=== PATIENT | female | born 1940 | race Caucasian/White ===

== ENCOUNTER 2017-07-23 18:49 | Inpatient (IN) ==
[2017-07-23] MEDS: SALINE FLUSH 10ml SYRINGE IVF PRN (20:15)
[2017-07-23] MEDS ORDERED: ALBUTEROL/IPRATROPIUM 2.5mg-0.5mg/3ml NEB AEROSOL ONE (20:20)
--- NOTE | 2017-07-23 20:54 | Emergency Department Report ---
SOB HPI - General Chief Complaint: Shortness of Breath/Dyspnea <Janice Bansal 07/23/17 20 :54> Stated Complaint: Pneumonia per Xray 82-86 o2 short breath <Janice Bansal 07/23/17 20:54> Time Seen by Provider: 07/23/17 19:52 <Janice Bansal Troy 07/23/17 20:54> Source: patient, family <Janice Bansal 07/23/17 20:54> Mode of arrival: wheelchair <Janice Bansal 07/23/17 20:54> Limitations: no limitations <Janice Bansal 07/23/17 20:54> - History of Present Illness Pt was diagnosed with a CAP yesterday and started on a steroid and Z pack after she had cough, SOA, and overall malaise for the prior 4-5 days. Family states pt SpO2 at home was in the upper 80s so they notified PCP who instructed pt to come to the ER. PT denies chest pain, N/V/D, or joint pain. SHe report fever of 100 at home as well as general weakness. <NicfelyJanice Troy 07/23/17 20:54> MD Complaint: shortness of breath, cough <Janice Bansal Troy 07/23/17 20:54> Onset (ago): day(s) <Janice Bansal Troy 07/23/17 20:54> Context: recent illness <Janice Bansal Troy 07/23/17 20:54> Severity: moderate <NicfelyJanice Santacruz Troy 07/23/17 20:54> Consistency/Duration: constant <Janice Bansal Troy 07/23/17 20:54> - Related Data Home Medications Medication Instructions Recorded Confirmed Potassium Chloride 20 meq PO BID #0 09/27/09 07/23/17 Carvedilol 25 mg PO BID #0 12/21/12 07/23/17 Insulin Aspart Prot/Insuln Asp 6 unit SQ TIDWM #0 12/21/13 07/23/17 [Novolog Mix 70-30 Flexpen Syrn] Melatonin/Pyridoxine [Melatonin 5 10 mg PO HS #0 tab 02/13/15 07/23/17 mg Tablet] Niacin [Niacin ER] 1 tab PO HS #90 02/13/15 07/23/17 Simvastatin 20 mg PO HS #0 tab 04/10/15 07/23/17 Hydralazine HCl 100 mg PO TID #0 tab 08/13/15 07/23/17 Potassium Chloride 10 meq PO HS #0 cap 08/13/15 07/23/17 dilTIAZem HCl [Diltiazem HCl] 180 mg PO BID #0 08/13/15 07/23/17 [place] 5 mg-acetaminophen 325 mg 1 tab PO HS PRN tab 09/17/16 07/23/17 tablet apixaban (Eliquis)5 mg tablet 5 mg PO DAILY tab 09/17/16 07/23/17 APAP/Diphenhydramine 500/25 1 tab PO HS 07/23/17 07/23/17 [Tylenol Pm] Allopurinol [Zyloprim] 100 mg PO DAILY 07/23/17 07/23/17 BuPROPion XL [Wellbutrin Xl] 150 mg PO DAILY 07/23/17 07/23/17 Calcitriol [Rocaltrol] 1 tab PO DAILY 07/23/17 07/23/17 Docusate Sodium [Colace] 200 mg PO HS 07/23/17 07/23/17 Ferrous Sulfate 325 mg PO TID 07/23/17 07/23/17 Furosemide [Lasix 40 mg Tab] 40 mg PO NOON 07/23/17 07/23/17 Furosemide [Lasix 40 mg Tab] 80 mg PO AM 07/23/17 07/23/17 Sertraline [Zoloft] 100 mg PO DAILY 07/23/17 07/23/17 <Janice Bansal 07/23/17 20:54> Allergies Allergy/AdvReac Type Severity Reaction Status Date / Time lisinopril AdvReac Mild COUGH Verified 07/23/17 19:12 succinylcholine chloride Allergy Severe does not Uncoded 07/23/17 19:12 metabolize <Janice Bansal 07/23/17 20:54> Review of Systems All systems: reviewed and negative except as stated <Janice Bansal 20:54> Constitutional: Reports: as per HPI <Janice Bansal 07/23/17 20:54> Cardiovascular: Reports: as per HPI <Janice Bansal 07/23/17 20:54> Respiratory: Reports: as per HPI <Janice Bansal 07/23/17 20:54> Gastrointestinal: Reports: as per HPI <Janice Bansal 07/23/17 20:54> Musculoskeletal: Reports: as per HPI <Janice Bansal 07/23/17 20:54> [facility] Patient Stated Medical History Cardiac Arrhythmia Yes: A-FIB Congestive Heart Failure Yes Hypertension Yes Pneumonia Yes Sleep Apnea Yes Diabetes Mellitus Type 1 Yes Depression Yes Clinic Medical History Anemia (Acute Medical) Arthritis (Acute Medical) COPD (chronic obstructive pulmonary disease) (Acute Medical) Depression (Acute Medical) Diabetes (Acute Medical) HTN (hypertension) (Acute Medical) High cholesterol (Acute Medical) <Janice Bansal 07/23/17 20:54> Family History: Family History Mother Heart disease High blood pressure Father Heart disease <Janice Bansal 07/23/17 20:54> Physical Exam - Limitations Limitations: no limitations <Janice Bansal 07/23/17 20:54> - General General appearance: alert, in no apparent distress <Janice Bansal 07/23 20:54> - Normal Exams: Head:: Normocephalic without trauma <Janice Bansal 07/23/17 20:54> Eyes:: Pupils are PERRLA w/ EOMI <Janice Bansal 07/23/17 20:54> Cardiovascular:: without murmur or gallop, Pulses 2+ all extremities, capillary refill, <2 seconds all extremities (irregular/ hx a fib) <Janice Bansal 07/23/17 20:54> Abdomen:: Bowel sounds positive, soft, non-tender, non-distended <Janice Bansal 07/23/17 20:54> Musculoskeletal:: No tenderness, or deformity noted, good range of motion, all extremities <Janice Bansal 07/23/17 20:54> Integumentary:: No rashes <Janice Bansal 07/23/17 20:54> Neurological:: Patient is alert, and oriented, cranial nerves, motor/sensory/ cerebellar, exams w/o gross deficits, to observation <Evonne Bansalnegrita Simmons 20:54> Psychiatric:: Patient exhibits, appropriate attention, emotion and affect < Janice Bansal 07/23/17 20:54> - Expanded Respiratory Exam Location: Left: wheezes, rhonchi, Right: wheezes, rhonchi, Lower: wheezes, rhonchi <Evonne Bansalan Neeta Simmons 07/23/17 20:54> Course Vital Signs Temperature 98.9 F 07/23/17 18:58 Pulse Rate 112 H 07/23/17 18:58 Respiratory Rate 24 07/23/17 18:58 Blood Pressure 153/85 H 07/23/17 18:58 Pulse Oximetry 90 07/23/17 18:58 Temperature 98.9 F 07/23/17 18:58 Pulse Rate 115 H 07/23/17 22:20 Respiratory Rate 26 H 07/23/17 22:20 Blood Pressure 160/80 H 07/23/17 22:20 Pulse Oximetry 93 07/23/17 22:20 <NimishaJanice Santacruz Troy 07/23/17 20:54> Shortness of Breath/Dyspnea - MDM Narrative Medical decision making narrative: Lab, X ray, and EKG reviewed. Pt started on IVF, Rocephin, and sputum culture obtained. Pt maintaining Spo2 in the low 90s on 2l per NC. Discussed admission with pt who voices understanding. Hospitalist notified of need for admission. Pt to be admitted inpatient <NimishaJanicenegrita Simmons 07/23/17 22:42> - Differential Diagnosis Likely: acute exacerbation of chronic obstructive airways disease, congestive heart failure, community acquired pneumonia, asthma with exacerbation, pulmonary embolism <Janice Bansal 07/23/17 20:54> - Lab Data Attestation: I reviewed the patient's lab results. <Janice Bansal 07/23 22:42> Result diagrams: 07/23/17 20:20 07/23/17 20:20 <Janice Bansal 07/23/17 20:54> Lab Results 07/23/17 07/23/1707/23/18 Range/Units 20:20 20:20 21:43 WBC 20.1 H (4.5-11.0) T/MM3 RBC 3.97 L (4.00-5.20) M/MM3 Hgb 12.1 (12-16) GM/DL Hct 36.8 (36-46) % MCV 92.7 (80-100) UM3 MCH 30.5 (26-34) UUG MCHC 32.9 (31-37) GM/DL RDW Std Deviation 44.7 (36.9-50.2) FL Plt Count 225 (130-400) T/MM3 MPV 10.4 (9.4-12.4) UM3 Immature Gran % (Auto) Not performed Neut % (Auto) Not performed Lymph % (Auto) Not performed [place] % (Auto) Not performed Eos % (Auto) Not performed Baso % (Auto) Not performed Neut # (Auto) Not performed Lymph # (Auto) Not performed [place] # (Auto) Not performed Eos # (Auto) Not performed Baso # (Auto) Not performed Abs Immat Gran (auto) Not performed Neutrophils % (Manual) 93.0 H (33-66) % Lymphocytes % (Manual) 4.0 L (23-45) % Monocytes % (Manual) 3.0 (0-9.0) % Neutrophils # (Manual) 18.7 H (1.8-7.7) T/MM3 Lymphocytes # (Manual) 0.8 L (1-4.8) T/MM3 Monocytes # (Manual) 0.6 (0-0.8) T/MM3 RBC Morph Comment Normal Turbidity < 20 (0-20) Sodium 136 (134-144) MEQ/L Potassium 3.7 (3.6-5) MEQ/L Chloride 97 L (98-107) MEQ/L Carbon Dioxide 26 (22-30) MEQ/L Anion Gap 13 (5-15) MEQ/L BUN 31.0 H (7-17) MG/DL Creatinine 2.0 H (0.7-1.2) mg/dL GFR Calculation 24 BUN/Creatinine Ratio 16 (6-26) RATIO Glucose 235 H (65-110) MG/DL Calculated Osmolality 277 (261-280) MOSM/KG Calcium 9.8 (8.4-10.2) MG/DL Total Bilirubin 0.60 (0.20-1.30) MG/DL Icterus Index < 2 (0-7) AST 28 (14-36) U/L ALT 22 (1-35) U/L Alkaline Phosphatase 123 (38-126) U/L NT-Pro-B Natriuret Pep 3360 H (0-175) pg/mL Total Protein 7.7 (6.3-8.2) g/dL Albumin 4.5 (3.5-5.0) g/dL Globulin 3.2 (2.4-3.6) G/DL Albumin/Globulin Ratio 1.4 (1.1-2.2) RATIO Plasma Lactate 1.3 (0.6-2.2) MMOL/L Specimen Hemolysis < 15 (0-25) <Janice Bansal 07/23/17 20:54> - Radiology Data Attestation: I reviewed the patient's radiology results. <Janice Bansal 07/23/17 22:42> read per August <Janice Bansal 07/23/17 22:42> - EKG Data EKG #1 EKG attestation: Yes: I reviewed and interpreted this EKG. < 21:41> EKG shows normal: axis, intervals, QRS complexes, ST-T waves < 21:41> Rate: tachycardia <07/23/17 21:41> Rhythm: A.Fib <07/23/17 21:41> When compared to previous EKG there are: previous EKG unavailable <07/23/17 21:41> Disposition Clinical Impression: Congestive heart failure Qualifiers: Heart failure chronicity: acute on chronic CAP (community acquired pneumonia) Qualifiers: Laterality: unspecified laterality Qualified Code(s): J18.9 - Pneumonia, unspecified organism <Janice Bansal 07/23/17 22:42> Disposition: 02 To [facility] [place] [facility] <Janice Bansal 07/23/17 22:42> Condition: Improved <Janice Bansal 07/23/17 22:42> Instructions: <Janice Bansal 07/23/17 20:54> Prescriptions: No Action Simvastatin 20 mg PO HS #0 tab dilTIAZem HCl [Diltiazem HCl] 180 mg PO BID #0 Hydralazine HCl 100 mg PO TID #0 tab Docusate Sodium [Colace] 200 mg PO HS Furosemide [Lasix 40 mg Tab] 80 mg PO AM Furosemide [Lasix 40 mg Tab] 40 mg PO NOON APAP/Diphenhydramine 500/25 [Tylenol Pm] 1 tab PO HS Sertraline [Zoloft] 100 mg PO DAILY Calcitriol [Rocaltrol] 1 tab PO DAILY Allopurinol [Zyloprim] 100 mg PO DAILY BuPROPion XL [Wellbutrin Xl] 150 mg PO DAILY Potassium Chloride 20 meq PO BID #0 Carvedilol 25 mg PO BID #0 Insulin Aspart Prot/Insuln Asp [Novolog Mix 70-30 Flexpen Syrn] 6 unit SQ TIDWM #0 Melatonin/Pyridoxine [Melatonin 5 mg Tablet] 10 mg PO HS #0 tab Niacin [Niacin ER] 1 tab PO HS #90 Potassium Chloride 10 meq PO HS #0 cap Ferrous Sulfate 325 mg PO TID <Janice Bansal 07/23/17 20:54> Referrals: Raj Abdalla DO [Primary Care Provider] - <Janice Bansal 20:54> Forms: <Janice Bansal 07/23/17 20:54> Time of Disposition: 22:42 <Janice Bansal 07/23/17 22:42> - Seen By: midlevel <Janice Bansal 07/23/17 22:42>
[2017-07-23] MEDS ORDERED: NS 1,000 ML IV SCH (22:00)
[2017-07-23] MEDS ORDERED: CEFTRIAXONE (ER USE ONLY) 1 GM in NS 100 ML IV ONE (22:32)
[2017-07-23] MEDS ORDERED: ONDANSETRON 4 MG/2 ML INJECTION IVP PRN (23:06)
[2017-07-23 23:32] VITALS: BMI 36.9
--- NOTE | 2017-07-24 00:24 | History & Physical Report ---
History of Present Illness Date: 07/24/17 Chief complaint: SOA HPI: 76 yo F with PMH of HTN and CHF presented to the ED with reports of increased SOA. Patient is poor historian. She wad DX with CAP by her PCP yesterday and given steroids and a Z-pack. She reports that her symptoms have gotten worse.. She reports increased cough productive of yellow/greenish sputum and SOA. Her family took her O2 sta at home and it was in the 80's. Patient then came to the ED. She was found to have PNA and was admitted for further care. Review of Systems All systems PM: 10-point ROS was reviewed, no additional remarkable complaints except Past Medical History Patient Stated Medical History Cardiac Arrhythmia Yes: A-FIB Congestive Heart Failure Yes Hypertension Yes Pneumonia Yes Sleep Apnea Yes Diabetes Mellitus Type 1 Yes Hx Incontinence Yes Osteoarthritis Yes Shingles Yes Depression Yes Clinic Medical History Anemia (Acute Medical) Arthritis (Acute Medical) COPD (chronic obstructive pulmonary disease) (Acute Medical) Depression (Acute Medical) Diabetes (Acute Medical) HTN (hypertension) (Acute Medical) High cholesterol (Acute Medical) Family History: Family History Mother Heart disease High blood pressure Father Heart disease Family History Updates: non contributory - Social History Smoking status: Never smoker Medications Home Medications Medication Instructions Recorded Confirmed Type Potassium Chloride 20 meq PO BID #0 09/27/09 07/23/17 History Carvedilol 25 mg PO BID #0 12/21/12 07/23/17 History Insulin Aspart Prot/Insuln Asp 6 unit SQ TIDWM #0 12/21/13 07/23/17 History [Novolog Mix 70-30 Flexpen Syrn] Melatonin/Pyridoxine [Melatonin 5 10 mg PO HS #0 tab 02/13/15 07/23/17 History mg Tablet] Niacin [Niacin ER] 1 tab PO HS #90 02/13/15 07/23/17 History Simvastatin 20 mg PO HS #0 tab 04/10/15 07/23/17 History Hydralazine HCl 100 mg PO TID #0 tab 08/13/15 07/23/17 History Potassium Chloride 10 meq PO HS #0 cap 08/13/15 07/23/17 History dilTIAZem HCl [Diltiazem HCl] 180 mg PO BID #0 08/13/15 07/23/17 History [place] 5 mg-acetaminophen 325 mg 1 tab PO HS PRN tab 09/17/16 07/23/17 History tablet apixaban (Eliquis)5 mg tablet 5 mg PO DAILY tab 09/17/16 07/23/17 History APAP/Diphenhydramine 500/25 1 tab PO HS 07/23/17 07/23/17 History [Tylenol Pm] Allopurinol [Zyloprim] 100 mg PO DAILY 07/23/17 07/23/17 History BuPROPion XL [Wellbutrin Xl] 150 mg PO DAILY 07/23/17 07/23/17 History Calcitriol [Rocaltrol] 1 tab PO DAILY 07/23/17 07/23/17 History Docusate Sodium [Colace] 200 mg PO HS 07/23/17 07/23/17 History Ferrous Sulfate 325 mg PO TID 07/23/17 07/23/17 History Furosemide [Lasix 40 mg Tab] 40 mg PO NOON 07/23/17 07/23/17 History Furosemide [Lasix 40 mg Tab] 80 mg PO AM 07/23/17 07/23/17 History Sertraline [Zoloft] 100 mg PO DAILY 07/23/17 07/23/17 History Allergies Allergy/AdvReac Type Severity Reaction Status Date / Time lisinopril AdvReac Mild COUGH Verified 07/23/17 19:12 succinylcholine chloride Allergy Severe does not Uncoded 07/23/17 19:12 metabolize Exam Vital Signs: Temperature 98.9 F 07/23/17 23:32 Pulse Rate 137 H 07/23/17 23:32 Respiratory Rate 32 H 07/23/17 23:32 Blood Pressure 147/94 H 07/23/17 23:32 Pulse Oximetry 94 07/23/17 23:32 Height/Weight/BMI: Height 1.5 m Weight 82.9 kg Body Mass Index 36.9 - Constitutional Present: well nourished, well developed - Routine Respiratory Exam Present: rhonchi, wheezes - Routine Cardiovascular Exam Present: RRR. Absent: murmur - Routine Abdominal Exam Present: soft, normoactive bowel sounds, non distended. Absent: tenderness - Routine Extremities Exam Present: normal capillary refill - Routine Skin Exam Present: dry, warm Results - Labs CBC & Chem 7: 07/23/17 20:20 07/23/17 20:20 Microbiology Results: Microbiology 07/23/17 22:47 Sputum, Expectorated Sputum Culture - Preliminary Culture Initiated - Results Pending Assessment and Plan (1) CAP (community acquired pneumonia) Current visit: Yes Status: Acute (2) Congestive heart failure Current visit: Yes Status: Acute Assessment and Plan: Patient admitted for PNA, question underling ChHF exacerbation. She does have elevated BNP. Will give duonebs overnight, IV steroids and possible IV lasix if hypoxia dose not improve. Attempt to wean oxygen during stay. DVT Prophylaxis: SCD's Resuscitation Status: Full Code - Physician Narrative Narrative: Date: 07/24/17 Time: 0015 Hospital Course Summary Disclaimer: The visit summary below is not to be considered part of the above Progress Note.
[2017-07-24] MEDS ORDERED: FUROSEMIDE 20 MG/2 ML INJECTION IVP ONE (00:33)
[2017-07-24] MEDS ORDERED: ALBUTEROL/IPRATROPIUM 2.5mg-0.5mg/3ml NEB AEROSOL PRN ×2 (01:16→01:27)
[2017-07-24] MEDS: BENZONATATE 200 MG CAPSULE PO PRN ×2 (01:47→20:41)
[2017-07-24] MEDS: ALBUTEROL/IPRATROPIUM 2.5mg-0.5mg/3ml NEB AEROSOL SCH ×2 (06:46→20:14)
--- NOTE | 2017-07-24 07:59 | XRay Report ---
INDICATION: SOA, known pneumonia PROCEDURE: CHEST 2-VIEWS UPRIGHT (PA & LAT) Encounter: Initial COMPARISON: July 22, 2017 FINDINGS: Chest appears stable with interstitial prominence. No new or worsening airspace consolidation. No pleural effusion or pneumothorax. Heart size and mediastinal contours are stable. Pulmonary vascularity is unchanged. Impression: Stable appearance of the chest. .
[2017-07-24] MEDS ORDERED: CARVEDILOL 25 MG TABLET PO SCH ×2 (09:00→17:30)
[2017-07-24] MEDS ORDERED: BuPROPion XL 150mg (24HR) TABLET PO SCH (09:15)
[2017-07-24] MEDS ORDERED: GLUCOSE ORAL GEL 40% 37.5gm PO PRN (09:23)
--- NOTE | 2017-07-24 09:53 | History & Physical Report ---
History of Present Illness Date: 07/24/17 HPI: Patient is a 76 year old female who presented to ED due to concerns of hypoxia. Patient had been diagnosed with CAP by her PCP on 07/22. She was started on azithromycin and steroids, of which she took one dose. She continued to have increased cough and not feel well. Her daughter has a pulse ox so they took her oxygen level and reported it would not go higher than 86%. She presented to the ED and was admitted due to hypoxia and pneumonia. Patient denies any other symptoms than cough and not feeling well. She weighs herself approximately once a week and has not noted any weight gain. She uses a CPAP at night but does not use oxygen through the day. She has no history of lung disease. She reports she has not missed any doses of medication, she has not noted any increased swelling. She follows with Dr. Bridges and is scheduled to see him 09/11 for her regular 6 month visit. Review of Systems - Constitutional Constitutional: Present: weakness. Absent: weight gain, weight loss - EENMT Eyes: Absent: blurry vision, change in vision Mouth/Throat: Absent: sore throat, changes in swallowing - Cardiovascular Cardiovascular: Absent: chest pain, palpitations, edema Rhythm: Present: abnormal rhythm - Respiratory Respiratory: Present: cough, dyspnea, chest congestion, excessive phlegm production. Absent: hemoptysis, wheezing - Gastrointestinal Gastrointestinal: Absent: abdominal pain, change in bowel habits, diarrhea - Genitourinary Genitourinary: Absent: difficulty urinating, dysuria - Musculoskeletal Musculoskeletal: Absent: abnormal gait, arthralgias - Neurological Neurological: Absent: confusion, headache(s) - Psychiatric Psychiatric: Present: depression Psychiatric Comments: reports well controlled Past Medical History Atrial Fibrillation Systolic heart failure CKD-Stage IV KIRSTIN-CPAP with sleep HTN Dyslipidemia Osteoarthritis Depression DM2-insulin dependent Obesity Family History Updates: Family History. Mother. Heart disease. High blood pressure. Father. Heart disease - Social History Smoking status: Never smoker Medications Home Medications Medication Instructions Recorded Confirmed Type Potassium Chloride 20 meq PO BID #0 09/27/09 07/23/17 History Carvedilol 25 mg PO BID #0 12/21/12 07/23/17 History Insulin Aspart Prot/Insuln Asp 6 unit SQ TIDWM #0 12/21/13 07/23/17 History [Novolog Mix 70-30 Flexpen Syrn] Melatonin/Pyridoxine [Melatonin 5 10 mg PO HS #0 tab 02/13/15 07/23/17 History mg Tablet] Niacin [Niacin ER] 1 tab PO HS #90 02/13/15 07/23/17 History Simvastatin 20 mg PO HS #0 tab 04/10/15 07/23/17 History Hydralazine HCl 100 mg PO TID #0 tab 08/13/15 07/23/17 History Potassium Chloride 10 meq PO HS #0 cap 08/13/15 07/23/17 History dilTIAZem HCl [Diltiazem HCl] 180 mg PO BID #0 08/13/15 07/23/17 History [place] 5 mg-acetaminophen 325 mg 1 tab PO HS PRN tab 09/17/16 07/23/17 History tablet apixaban (Eliquis)5 mg tablet 2.5 mg PO BID tab 09/17/16 07/24/17 History APAP/Diphenhydramine 500/25 1 tab PO HS 07/23/17 07/23/17 History [Tylenol Pm] Allopurinol [Zyloprim] 100 mg PO DAILY 07/23/17 07/23/17 History BuPROPion XL [Wellbutrin Xl] 150 mg PO DAILY 07/23/17 07/23/17 History Calcitriol [Rocaltrol] 1 tab PO DAILY 07/23/17 07/23/17 History Docusate Sodium [Colace] 200 mg PO HS 07/23/17 07/23/17 History Ferrous Sulfate 325 mg PO TID 07/23/17 07/23/17 History Furosemide [Lasix 40 mg Tab] 40 mg PO NOON 07/23/17 07/23/17 History Furosemide [Lasix 40 mg Tab] 80 mg PO AM 07/23/17 07/23/17 History Sertraline [Zoloft] 100 mg PO DAILY 07/23/17 07/23/17 History Allergies Allergy/AdvReac Type Severity Reaction Status Date / Time lisinopril AdvReac Mild COUGH Verified 07/23/17 19:12 succinylcholine chloride Allergy Severe does not Uncoded 07/23/17 19:12 metabolize Exam Vital Signs: Temperature 98.4 F 07/24/17 07:41 Pulse Rate 115 H 07/24/17 09:43 Respiratory Rate 16 07/24/17 07:41 Blood Pressure 132/74 07/24/17 09:38 Pulse Oximetry 93 07/24/17 09:43 Telemetry Rhythm: A-fib Height/Weight/BMI: Height 4 ft 11 in Weight 83 kg Body Mass Index 36.9 - Constitutional Present: no acute distress, obese - Routine HEENT Exam Head: Present: normocephalic, atraumatic Eye: Present: EOMI, conjunctivae pink - Routine Neck Exam Present: supple. Absent: JVD - Routine Chest/Breast/Axilla Exam Chest wall: Absent: tenderness - Routine Respiratory Exam Present: decreased breath sounds, diminished air movement. Absent: accessory muscle use, dyspnea - Routine Cardiovascular Exam Present: tachycardia, irregularly irregular - Routine Abdominal Exam Present: soft, normoactive bowel sounds, non distended. Absent: tenderness - Routine Extremities Exam Present: no edema. Absent: cyanosis, clubbing - Routine Skin Exam Present: intact, dry, warm - Routine Neurological Exam Present: alert, oriented X3, CN II-XII intact - Routine Psychiatric Exam Present: normal affect Results - Labs CBC & Chem 7: 07/24/17 02:34 07/24/17 02:34 Microbiology Results: Microbiology 07/23/17 22:47 Sputum, Expectorated Gram Stain - Final 07/23/17 22:47 Sputum, Expectorated Sputum Culture - Preliminary Culture Initiated - Results Pending Assessment and Plan (1) Congestive heart failure Current visit: Yes Status: Acute (2) CAP (community acquired pneumonia) Current visit: Yes Status: Acute Assessment and Plan: Assessment Sepsis-present on admission, now resolving Pneumonia Acute hypoxic respiratory failure-resolving Atrial Fibrillation Systolic heart failure without exacerbation CKD-Stage IV KIRSTIN-CPAP with sleep HTN Dyslipidemia Osteoarthritis Depression DM2-insulin dependent Obesity Plan Continue antibiotics Wean oxygen as tolerated to maintain sats >90 Breathing treatments, RT consult Continue CPAP with sleep Follow sputum culture Continue home medications (hold parameters and reduced doses of some meds due to acute illness) Monitor on tele Diabetic diet, sliding scale insulin (on no basal at home), glucose monitoring Trend labs PT/OT consult Plan for discharge when able to remain on RA and SOB improved GI ppx: not indicated DVT ppx: continue Eliquis DVT Prophylaxis: Eliquis - Physician Narrative Physician: other (Farrah Bowie MD) Narrative: Date: 07/24/17 Time: 0949 Hospital Course Summary Disclaimer: The visit summary below is not to be considered part of the above Progress Note.
[2017-07-24] MEDS: APIXABAN 2.5 MG TABLET PO SCH ×2 (10:24→20:41)
[2017-07-24] MEDS: AZITHROMYCIN 250 MG TABLET PO SCH (10:24)
[2017-07-24] MEDS: FUROSEMIDE 40 MG TABLET PO SCH ×2 (10:25→17:43)
[2017-07-24] MEDS: SERTRALINE 100 MG TABLET PO SCH (10:26)
[2017-07-24] MEDS: INSULIN ASPART 100unit/ml INJECTION SQ PRN (12:21)
[2017-07-24] MEDS: HYDRALAZINE 25 MG TABLET PO SCH ×2 (12:21→17:50)
[2017-07-24] MEDS: METOPROLOL SUCCINATE 200 MG PO SCH (15:44)
--- NOTE | 2017-07-24 16:51 | Cardiology Consult Note ---
<Sandra Matos - Last Filed: 07/24/17 22:08> History of Present Illness Consult date: 07/24/17 Requesting physician: Farrah Bowie Consult reason: atrial fibrillation, known to you (afib) Chief complaint: dyspnea, cough History of present illness: Patient is a 76 year old female known to Dr. Bridges for AFib, cardiomyopathy, pulmonary hypertension. who presented to [facility] [place] due to concerns of hypoxia. She had been diagnosed with URI by her PCP,started on azithromycin and steroids, of which she took one dose. Her daughter has a pulse ox, they took her oxygen level and reported it would not go higher than 86%. She presented to the ED and was admitted due to hypoxia and pneumonia. Patient denies chest pain , palpitations, dizziness, increased LE edema. She admits general feeling of unwell She weighs herself approximately once a week and has not noted any weight gain. She uses a CPAP at night but does not use oxygen throughout the day. Denies missing doses of meds. Review of Systems - Constitutional Constitutional: Present: fatigue. Absent: weight gain - EENMT Eyes: Absent: change in vision, loss of vision - Cardiovascular Cardiovascular: Present: edema. Absent: chest pain, palpitations, syncope, heart murmur Rhythm: Present: abnormal rhythm (known afib) Vascular: Absent: pedal edema - Respiratory Respiratory: Present: cough, dyspnea, wheezing, chest congestion, excessive phlegm production - Gastrointestinal Gastrointestinal: Absent: diarrhea, nausea - Musculoskeletal Musculoskeletal: Present: muscle weakness - Integumentary/Breasts Integumentary: Absent: rash, wounds - Neurological Neurological: Absent: confusion, dizziness - Psychiatric Psychiatric: Present: anxiety PFSH Patient Stated Medical History Cardiac Arrhythmia Yes: A-FIB Congestive Heart Failure Yes Hypertension Yes Pneumonia Yes Sleep Apnea Yes Diabetes Mellitus Type 1 Yes Hx Incontinence Yes Osteoarthritis Yes Shingles Yes Depression Yes Clinic Medical History Anemia (Acute Medical) Arthritis (Acute Medical) COPD (chronic obstructive pulmonary disease) (Acute Medical) Depression (Acute Medical) Diabetes (Acute Medical) HTN (hypertension) (Acute Medical) High cholesterol (Acute Medical) Family History: Family History Mother Heart disease High blood pressure Father Heart disease Family History Updates: Family History. Mother. Heart disease. High blood pressure. Father. Heart disease - Social History Smoking status: Never smoker Current residence: Apartment/Private Home Medications Home Medications Medication Instructions Recorded Confirmed Type Potassium Chloride 20 meq PO 0800,1200 #0 09/27/09 07/24/17 History Carvedilol 25 mg PO BID #0 12/21/12 07/23/17 History Insulin Aspart Prot/Insuln Asp 6 unit SQ TIDWM #0 12/21/13 07/23/17 History [Novolog Mix 70-30 Flexpen Syrn] Niacin [Niacin ER] 1 tab PO HS #90 02/13/15 07/23/17 History Simvastatin 20 mg PO HS #0 tab 04/10/15 07/23/17 History Hydralazine HCl 100 mg PO TID #0 tab 08/13/15 07/23/17 History Potassium Chloride 10 meq PO 1700 #0 cap 08/13/15 07/24/17 History dilTIAZem HCl [Diltiazem HCl] 180 mg PO BID #0 08/13/15 07/23/17 History [place] 5 mg-acetaminophen 325 mg 1 tab PO HS PRN tab 09/17/16 07/23/17 History tablet apixaban (Eliquis)5 mg tablet 2.5 mg PO BID tab 09/17/16 07/24/17 History APAP/Diphenhydramine 500/25 1 tab PO HS 07/23/17 07/23/17 History [Tylenol Pm] Allopurinol [Zyloprim] 100 mg PO BID 07/23/17 07/24/17 History Docusate Sodium [Colace] 200 mg PO HS 07/23/17 07/23/17 History Ferrous Sulfate 325 mg PO TID 07/23/17 07/23/17 History Furosemide [Lasix 40 mg Tab] 40 mg PO NOON 07/23/17 07/23/17 History Furosemide [Lasix 40 mg Tab] 80 mg PO AM 07/23/17 07/23/17 History Sertraline [Zoloft] 100 mg PO DAILY 07/23/17 07/23/17 History Buspirone [Buspar] 10 mg PO 0800,1200 07/24/17 07/24/17 History Calcitriol [Rocaltrol] 1 tab PO DAILY 07/24/17 07/24/17 History Melatonin 3 mg Tablet 3 mg PO HS 07/24/17 07/24/17 History Melatonin/Pyridoxine HCl (B6) 10 mg PO HS 07/24/17 07/24/17 History [Melatonin 10 mg Tablet] Allergies Allergy/AdvReac Type Severity Reaction Status Date / Time lisinopril AdvReac Mild COUGH Verified 07/23/17 19:12 succinylcholine chloride Allergy Severe does not Uncoded 07/23/17 19:12 metabolize Exam Vital signs: Temperature 99.8 F 07/24/17 16:16 Pulse Rate 131 H 07/24/17 16:16 Respiratory Rate 20 07/24/17 16:16 Blood Pressure 158/97 H 07/24/17 16:16 Pulse Oximetry 92 07/24/17 16:16 - Constitutional no acute distress, morbidly obese, cooperative - Routine HEENT Exam Head: Present: normocephalic, atraumatic Eye: Present: PERRL ENT: Present: mucous membranes moist - Routine Neck Exam Absent: JVD, carotid bruit - Routine Chest/Breast/Axilla Exam Chest wall: Absent: pacemaker - Routine Respiratory Exam Present: diminished air movement. Absent: accessory muscle use - Routine Cardiovascular Exam Present: no murmur, tachycardia, irregular rhythm - Routine Abdominal Exam Present: soft, normoactive bowel sounds - Routine Extremities Exam Present: normal capillary refill - Routine Skin Exam Present: intact, warm - Routine Neurological Exam Present: alert, oriented X3, moving all extremities, normal speech - Routine Psychiatric Exam Present: normal affect, normal thought process Results 07/24/17 02:34 07/24/17 02:34 CBC 07/24/17 Range/Units 02:34 WBC 17.7 H (4.5-11.0) T/MM3 RBC 3.71 L (4.00-5.20) M/MM3 Hgb 11.2 L (12-16) GM/DL Hct 34.4 L (36-46) % Plt Count 220 (130-400) T/MM3 Comprehensive Metabolic Panel 07/24/17 Range/Units 02:34 Sodium 137 (134-144) MEQ/L Potassium 3.4 L (3.6-5) MEQ/L Chloride 98 (98-107) MEQ/L Carbon Dioxide 26 (22-30) MEQ/L BUN 33.0 H (7-17) MG/DL Creatinine 1.9 H (0.7-1.2) mg/dL Glucose 175 H (65-110) MG/DL Calcium 9.4 (8.4-10.2) MG/DL Intake and Output 07/24/17 07/24/17 07/24/17 06:59 14:59 22:59 Intake Total 100 / 100 1220 / 1220 Output Total 600 / 600 600 / 600 100 / 100 Balance -500 / -500 620 / 620 -100 / -100 Intake: IV 100 / 100 Ceftriaxone (ER Use Only) 1 gm 100 / 100 In Ns 100 ml @ 200 mls/hr IV O ONE Rx#:[id number] Oral 1220 / 1220 Output: Urine 600 / 600 600 / 600 100 / 100 Other: Urine Appearance Clear Clear Clear Urine Color Yellow Yellow Pale Yellow Urine Odor Normal # Voids 1 # Incontinent Voids 1 Weight 82.9 kg 83 kg Patient Weight 07/25/17 06:59 Weight 83 kg EKG interpretations - EKG EKG shows: atrial fibrillation Assessment and Plan - Assessment and Plan (1) Atrial fibrillation with RVR Current visit: Yes Status: Acute (2) Diastolic congestive heart failure Current visit: Yes Status: Acute (3) Pulmonary hypertension Current visit: Yes Status: Acute (4) CAD (coronary artery disease) Current visit: Yes Status: Acute (5) CAP (community acquired pneumonia) Current visit: Yes Status: Acute - Assessment and Plan CAP and hypoxia per attending. BNP elevated, CHF exacerbation mild by clinical exam; likely acute respiratory illness induced. Home lasix restarted 40mg bid, pt had one time dose of lasix 20mg IV. DC coreg 25mg bid. change Diltiazem to 180mg daily, initiate metoprolol succinate 200mg daily. Continue Eliquis 2.5mg bid, metoprolol and diltiazem for rate control. Continue home Zocor, statin. Hospital Course Summary Disclaimer: The visit summary below is not to be considered part of the above Progress Note. <Fermin Bridges - Last Filed: 07/29/17 09:59> [facility] Patient Stated Medical History Cardiac Arrhythmia Yes: A-FIB Congestive Heart Failure Yes Hypertension Yes Pneumonia Yes Sleep Apnea Yes Diabetes Mellitus Type 1 Yes Hx Incontinence Yes Osteoarthritis Yes Shingles Yes Depression Yes Clinic Medical History Anemia (Acute Medical) Arthritis (Acute Medical) COPD (chronic obstructive pulmonary disease) (Acute Medical) Depression (Acute Medical) Diabetes (Acute Medical) HTN (hypertension) (Acute Medical) High cholesterol (Acute Medical) Family History: Family History Mother Heart disease High blood pressure Father Heart disease Exam Vital signs: Temperature 97.3 F 07/29/17 07:44 Pulse Rate 91 07/29/17 07:44 Respiratory Rate 16 07/29/17 07:44 Blood Pressure 125/69 07/29/17 07:44 Pulse Oximetry 95 07/29/17 07:44 Results 07/28/17 03:51 07/29/17 04:43 Comprehensive Metabolic Panel 07/29/17 Range/Units 04:43 Sodium 139 (134-144) MEQ/L Potassium 4.2 (3.6-5) MEQ/L Chloride 99 (98-107) MEQ/L Carbon Dioxide 28 (22-30) MEQ/L BUN 37.0 H (7-17) MG/DL Creatinine 1.3 H D (0.7-1.2) mg/dL Glucose 110 (65-110) MG/DL Calcium 10.0 (8.4-10.2) MG/DL Intake and Output 07/28/17 07/29/17 07/29/17 22:59 06:59 14:59 Intake Total 300 / 300 120 / 120 Output Total 1000 / 1000 1100 / 1100 Balance -1000 / -1000 -800 / -800 120 / 120 Intake: Oral 300 / 300 120 / 120 Output: Urine 1000 / 1000 1100 / 1100 Other: Urine Appearance Clear Clear Urine Color Yellow Dark Yellow Urine Odor Normal Normal # Voids 1 1 Weight 82.6 kg Patient Weight 07/30/17 06:59 Weight 82.6 kg Assessment and Plan - Attestation Attestation Narrative: 07/29/17 09:40 Patient seen and evaluated by my midlevel Tyra on the date of this note. All aspects of this patient's care was discussed with me in detail and I agree with the plan of care and the note above. 07/29/17 09:58 I also saw and evaluated patient on the date of this note. I have reviewed lab , radiology, EKG findings, and all other clinical aspects of this patient's care. I have determined this plan of care. - Assessment and Plan (1) CAP (community acquired pneumonia) Current visit: Yes Status: Acute (2) Atrial fibrillation with RVR Current visit: Yes Status: Chronic (3) Pulmonary hypertension Current visit: Yes Status: Acute (4) CAD (coronary artery disease) Current visit: Yes Status: Acute (5) Acute systolic (congestive) heart failure Current visit: Yes Status: Acute Hospital Course Summary Disclaimer: The visit summary below is not to be considered part of the above Progress Note.
[2017-07-24] MEDS: CEFTRIAXONE 1 G in NS 50 ML IV SCH (20:40)
[2017-07-24] MEDS ORDERED: APIXABAN 2.5 MG TABLET PO SCH (21:00)
[2017-07-24] MEDS: BUSPIRONE 10 MG TABLET PO SCH (21:52)
[2017-07-25] MEDS: HYDROCODONE/APAP 5mg/325mg TABLET PO PRN ×3 (00:06→21:52)
[2017-07-25] MEDS: AZITHROMYCIN 250 MG TABLET PO SCH (07:10)
[2017-07-25] MEDS: ALBUTEROL/IPRATROPIUM 2.5mg-0.5mg/3ml NEB AEROSOL SCH ×2 (08:04→19:12)
[2017-07-25] MEDS: BUSPIRONE 10 MG TABLET PO SCH ×2 (08:34→21:12)
[2017-07-25] MEDS: HYDRALAZINE 25 MG TABLET PO SCH ×3 (08:35→17:41)
[2017-07-25] MEDS: APIXABAN 2.5 MG TABLET PO SCH ×2 (08:35→21:12)
[2017-07-25] MEDS: FUROSEMIDE 40 MG TABLET PO SCH (08:35)
[2017-07-25] MEDS: METOPROLOL SUCCINATE 200 MG PO SCH (08:36)
[2017-07-25] MEDS: SERTRALINE 100 MG TABLET PO SCH (08:38)
[2017-07-25] MEDS: SALINE FLUSH 10ml SYRINGE IVF PRN ×2 (09:05→21:12)
--- NOTE | 2017-07-25 15:40 | Progress Note ---
- Date 07/25/17 Subjective: Mrs. Rosas reports that she continues to have minor dyspnea and cough with some purulent sputum production. She denied chest pain or palpitations and reports that she is unaware of tachyarrhythmias when present. She denied nausea or vomiting. She has no urinary symptoms. She had fever overnight with some chills and complains of generalized weakness. She has not been lightheaded when she is up however. She remains on 2 L supplemental oxygen. She reports history chronic atrial fibrillation for at least 5 years. Objective Vital signs: Temperature 97.2 F 07/25/17 14:00 Pulse Rate 105 H 07/25/17 14:00 Respiratory Rate 16 07/25/17 14:00 Blood Pressure 148/79 H 07/25/17 14:00 Pulse Oximetry 94 -2 L 07/25/17 12:13 I/O 1770/1400 EXAM General-NAD, alert, fluent speech HEENT-conjunctiva clear, sclera anicteric, oropharynx clear Lungs-respirations nonlabored, decreased air flow at the right base but breath sounds are otherwise clear; no wheezing Cardiac-irregular rhythm, S1-S2, low-grade tachycardia Abd-soft, nontender, bowel sounds present Ext-trace edema Neuro-MAEW Psych-calm, cooperative, euthymic - Height/Weight/BMI: Height 1.5 m Weight 83 kg Body Mass Index 36.9 Results - Labs CBC & Chem 7: 07/25/17 04:18 07/25/17 04:18 Labs: S85, L15 Microbiology Results: Microbiology 07/23/17 22:47 Sputum, Expectorated Gram Stain -few epithelial cells, gram- positive cocci 07/23/17 22:47 Sputum, Expectorated Sputum Culture - Preliminary - Imaging and Cardiology Chest x-ray Status: image reviewed by me (admission film reviewed by myself-NAD) Assessment and Plan (1) Congestive heart failure Problem details: Diastolic Current visit: Yes Status: Acute (2) CAP (community acquired pneumonia) Current visit: Yes Status: Acute (3) Atrial fibrillation with RVR Current visit: Yes Status: Chronic Assessment and Plan: Assessment: Acute hypoxic respiratory failure Sepsis-present on admission (leukocytosis, tachypnea, tachycardia) Pneumonia/bronchitis-acute Atrial Fibrillation with RVR Diastolic heart failure with exacerbation CKD-Stage IV KIRSTIN-CPAP with sleep HTN Dyslipidemia Osteoarthritis Depression DM2-insulin dependent Obesity Plan: Continue antibiotics-day 3 ceftriaxone/azithromycin; my review of chest x-ray does not reveal infiltrate. Repeat chest x-ray in a.m., sputum culture pending. Persistent leukocytosis with fever overnight-blood cultures to be drawn if recurs. Leukocytosis may be due to steroids given as an outpatient prior to admission. Continue supplemental oxygen as needed. Continue diuresis. Heart rate poorly controlled overnight with rates 110-150 by review of vital signs and telemetry strips. Diltiazem added to metoprolol by cardiology this morning and currently heart rate ranging upper 90s-110. Patient indicates digoxin recently discontinued. Renal function stable. Continue CPAP with sleep. Blood sugars adequately controlled. PT evaluation completed yesterday-home health recommended at discharge the patient does not believe it will be needed. Nursing provide supplemental history. DVT Prophylaxis: Raman Resuscitation Status: Full Code - Physician Narrative Narrative: Date: 07/25/17 Time: 1537 Hospital Course Summary Disclaimer: The visit summary below is not to be considered part of the above Progress Note. Hospital Course: 07/24/17 Mrs. Rosas was admitted overnight with increasing dyspnea and pneumonia with treatment initiated as an outpatient. Oxygen saturation in the 80s at home prompting ER evaluation and subsequent admission. Continue ceftriaxone/azithromycin Wean oxygen as tolerated to maintain sats >90 Breathing treatments, RT consult Continue CPAP with sleep Follow sputum culture Continue home medications (hold parameters and reduced doses of some meds due to acute illness) Monitor on telemetry for atrial fibrillation; rate control poor-Dr. Bridges consulted. Diabetic diet, sliding scale insulin (on no basal at home), glucose monitoring 07/25/17 Continue antibiotics-day 3 ceftriaxone/azithromycin; my review of chest x-ray does not reveal infiltrate. Repeat chest x-ray in a.m., sputum culture pending. Persistent leukocytosis with fever overnight-blood cultures to be drawn if recurs. Continue supplemental oxygen as needed. Continue diuresis. Heart rate poorly controlled overnight with rates 110-150 by review of vital signs and telemetry strips. Diltiazem added to metoprolol by cardiology this morning and currently heart rate ranging upper 90s-110. Patient indicates digoxin recently discontinued. Renal function stable.
--- NOTE | 2017-07-25 17:13 | Cardiology Progress Note ---
<Sandra Matos L - Last Filed: 07/26/17 11:34> Subjective Principal diagnosis: Chronic Atrial Fibrillation Interval history: Aleisha seen in f/u of AFib w/RVR, HF. Pt reports feeling well, denies palpitations or chest pain. Continues to have a nonproductive cough. She and her family have inquired about Digoxin, Discussed I would like to try and control her rate with Diltiazem and metoprolol succinate , if unsuccessful and renal status stable may consider restarting dig. Digoxin was dc'd in February 2017 due to bradycardia and worsened renal function , rates <60 in AFib. Exam Vital signs: Temperature 97.2 F 07/25/17 14:00 Pulse Rate 105 H 07/25/17 14:00 Respiratory Rate 16 07/25/17 14:00 Blood Pressure 148/79 H 07/25/17 14:00 Pulse Oximetry 95 07/25/17 15:40 Inpatient Medications: Generic Name Dose Route Start Last Admin Trade Name Freq PRN Reason Stop Dose Admin Hydrocodone Bitart/Acetaminophen 1 tab 07/23/17 23:06 07/25/17 08:34 [place] 5/325 PO 1 tab Q6H PRN Administration Pain Albuterol/Ipratropium 3 ml 07/24/17 07:00 07/25/17 08:04 Duoneb AEROSOL 3 ml RTBID KELVIN Administration Albuterol/Ipratropium 3 ml 07/24/17 01:27 Duoneb AEROSOL PRN PRN Allopurinol 100 mg 07/25/17 21:00 Zyloprim PO BID KELVIN Apixaban 2.5 mg 07/24/17 09:38 07/25/17 08:35 Eliquis PO 2.5 mg BID KELVIN Administration Azithromycin 250 mg 07/24/17 10:00 07/25/17 07:10 Zithromax Eq. PO 07/27/17 06:31 250 mg ACB KELVIN Administration Benzonatate 200 mg 07/24/17 01:34 07/24/17 20:41 Tessalon Perles PO 200 mg TID PRN Administration Cough Buspirone HCl 10 mg 07/24/17 21:00 07/25/17 08:34 Buspar PO 10 mg BID KELVIN Administration Buspirone HCl 10 mg 07/26/17 08:00 Buspar PO 0800,1200 KELVIN Diltiazem HCl 180 mg 07/25/17 21:00 Cardizem Cd 180 Mg PO BID KELVIN Furosemide 80 mg 07/26/17 08:00 Lasix 40 Mg Tab PO AM KELVIN Furosemide 40 mg 07/26/17 12:00 Lasix 40 Mg Tab PO NOON [facility] Glucose 37.5 gm 07/24/17 09:23 Glutose 15 PO PRN PRN Hypoglycemia Hydralazine HCl 50 mg 07/24/17 12:00 07/25/17 13:38 Apresoline PO 50 mg TIDWM KELVIN Administration Ceftriaxone Sodium 1 g/ Sodium 50 mls @ 100 mls/hr 07/24/17 20:00 07/24/17 21 :10 Chloride IV Infused Q24H [facility] Infusion Insulin Aspart 1 - 5 unit 07/24/17 09:23 07/24/17 12:21 Novolog SQ 1 unit SS PRN Administration Hyperglycemia Protocol Metoprolol Succinate 200 mg 07/24/17 15:45 07/25/17 08:36 Toprol Xl PO 200 mg DAILY KELVIN Administration Non-Formulary Medication 1 tab 07/26/17 09:00 Calcitriol [Rocaltrol] PO DAILY [facility] Non-Formulary Medication 3 mg 07/25/17 21:00 Melatonin 3 Mg Tablet PO HS [facility] Ondansetron HCl 4 mg 07/23/17 23:06 Zofran IVP Q6H PRN Nausea &/or vomiting Potassium Chloride 20 meq 07/24/17 09:45 07/25/17 08:34 K-Dur 20 Meq Tablet PO 20 meq BIDWM KELVIN Administration Sertraline HCl 100 mg 07/24/17 09:15 07/25/17 08:38 Zoloft PO 100 mg DAILY [facility] Administration Sodium Chloride 10 - 80 ml 07/23/17 20:20 07/25/17 09:05 Iv Flush IVF 10 ml PRN PRN Administration Flushing Discontinued Medications Generic Name Dose Route Start Last Admin Trade Name Freq PRN Reason Stop Dose Admin Albuterol/Ipratropium 3 ml 07/23/17 20:20 07/23/17 20:41 Duoneb AEROSOL 07/23/17 20:21 3 ml O ONE Administration Albuterol/Ipratropium 3 ml 07/24/17 01:16 07/24/17 01:19 Duoneb AEROSOL 3 ml RTBID PRN Administration Apixaban 2.5 mg 07/24/17 21:00 Eliquis PO BID KELVIN Bupropion HCl 150 mg 07/24/17 09:15 07/24/17 10:25 Wellbutrin Xl PO 150 mg DAILY KELVIN Administration Carvedilol 25 mg 07/24/17 09:00 07/24/17 08:12 Coreg PO 25 mg BID KELVIN Administration Carvedilol 25 mg 07/24/17 17:30 Coreg PO BIDWM KELVIN Diltiazem HCl 180 mg 07/24/17 09:00 07/24/17 08:12 Cardizem Cd 180 Mg PO 180 mg BID KELVIN Administration Diltiazem HCl 180 mg 07/25/17 09:00 07/25/17 08:36 Cardizem Cd 180 Mg PO 180 mg DAILY KELVIN Administration Furosemide 20 mg 07/24/17 00:33 07/24/17 01:51 Lasix 20 Mg/2 Ml IVP 07/24/17 00:34 20 mg ONCE ONE Administration Furosemide 40 mg 07/24/17 10:00 07/25/17 08:35 Lasix 40 Mg Tab PO 40 mg 0900,1700 KELVIN Administration Sodium Chloride 1,000 mls @ 150 mls/hr 07/23/17 22:00 07/23/17 22:44 Normal Saline IV 07/24/17 00:10 0 mls/hr .Q6H40M KELVIN Infusion Ceftriaxone Sodium 1 gm/ 100 mls @ 200 mls/hr 07/23/17 22:32 07/23/17 23:15 Sodium Chloride IV 07/23/17 23:01 Infused O ONE Infusion Potassium Chloride 20 meq 07/24/17 17:30 K-Dur 20 Meq Tablet PO BIDWM KELVIN - Constitutional no acute distress - Routine HEENT Exam Head: Present: normocephalic, atraumatic Eye: Present: PERRL - Routine Neck Exam Absent: JVD, carotid bruit - Routine Cardiovascular Exam Present: no murmur, tachycardia, irregular rhythm. Absent: JVD - Routine Abdominal Exam Present: soft, normoactive bowel sounds - Routine Extremities Exam Present: no edema, normal capillary refill. Absent: cyanosis - Routine Skin Exam Absent: rash - Routine Neurological Exam Present: alert, oriented X3 - Routine Psychiatric Exam Present: normal affect, normal thought process Results 07/26/17 04:54 07/26/17 04:54 CBC 07/25/17 Range/Units 04:18 WBC 17.1 H (4.5-11.0) T/MM3 RBC 3.86 L (4.00-5.20) M/MM3 Hgb 11.7 L (12-16) GM/DL Hct 36.2 (36-46) % Plt Count 233 (130-400) T/MM3 Neut # (Auto) Not performed Lymph # (Auto) Not performed [place] # (Auto) Not performed Eos # (Auto) Not performed Baso # (Auto) Not performed Comprehensive Metabolic Panel 07/25/17 Range/Units 04:18 Sodium 137 (134-144) MEQ/L Potassium 3.6 (3.6-5) MEQ/L Chloride 97 L (98-107) MEQ/L Carbon Dioxide 26 (22-30) MEQ/L BUN 28.0 H (7-17) MG/DL Creatinine 1.7 H D (0.7-1.2) mg/dL Glucose 109 (65-110) MG/DL Calcium 9.7 (8.4-10.2) MG/DL Intake and Output 07/25/17 07/25/17 07/25/17 06:59 14:59 22:59 Intake Total 300 / 300 350 / 350 Output Total 600 / 600 200 / 200 Balance -300 / -300 150 / 150 Intake: Oral 300 / 300 350 / 350 Output: Urine 600 / 600 200 / 200 Other: Urine Appearance Clear Cloudy Clear Urine Color Yellow Light [place] Yellow Urine Odor Normal # Voids 1 - Imaging and Cardiology Echo: report reviewed Assessment and Plan - Assessment and Plan (1) Atrial fibrillation with RVR Current visit: Yes Status: Chronic (2) Diastolic congestive heart failure Current visit: Yes Status: Acute (3) Pulmonary hypertension Current visit: Yes Status: Acute (4) CAD (coronary artery disease) Current visit: Yes Status: Acute (5) CAP (community acquired pneumonia) Current visit: Yes Status: Acute - Assessment and Plan 07/24/17: CAP and hypoxia per attending. BNP elevated, CHF exacerbation mild by clinical exam; likely acute respiratory illness induced. Home lasix restarted 40mg bid, pt had one time dose of lasix 20mg IV. DC coreg 25mg bid. change Diltiazem to 180mg daily, initiate metoprolol succinate 200mg daily. Continue Eliquis 2.5mg bid, metoprolol and diltiazem for rate control. Continue home Zocor, statin. 07/25/17: Pt stable today, HR hanging around 80-120's. Will increase diltiazem to bid to for improved rate control, diltiazem cd 180mg bid. Continue metoprolol succinate 200mg daily, changed from home coreg for improved rate effect of BB therapy. Home Eliquis 2.5mg bid, low dose due to renal function impairment. Home Zocor. Discussed additional diureses with Dr. Fair, I think the patient is mildly fluid volume up, diuresis would improve her respiratory status and aid in rate control. Hospital Course Summary Disclaimer: The visit summary below is not to be considered part of the above Progress Note. Hospital Course: 07/24/17 Mrs. Rosas was admitted overnight with increasing dyspnea and pneumonia with treatment initiated as an outpatient. Oxygen saturation in the 80s at home prompting ER evaluation and subsequent admission. Continue ceftriaxone/azithromycin Wean oxygen as tolerated to maintain sats >90 Breathing treatments, RT consult Continue CPAP with sleep Follow sputum culture Continue home medications (hold parameters and reduced doses of some meds due to acute illness) Monitor on telemetry for atrial fibrillation; rate control poor-Dr. Bridges consulted. Diabetic diet, sliding scale insulin (on no basal at home), glucose monitoring 07/25/17 Continue antibiotics-day 3 ceftriaxone/azithromycin; my review of chest x-ray does not reveal infiltrate. Repeat chest x-ray in a.m., sputum culture pending. Persistent leukocytosis with fever overnight-blood cultures to be drawn if recurs. Continue supplemental oxygen as needed. Continue diuresis. Heart rate poorly controlled overnight with rates 110-150 by review of vital signs and telemetry strips. Diltiazem added to metoprolol by cardiology this morning and currently heart rate ranging upper 90s-110. Patient indicates digoxin recently discontinued. Renal function stable. <Fermin Bridges - Last Filed: 07/29/17 09:42> Exam Vital signs: Temperature 97.3 F 07/29/17 07:44 Pulse Rate 91 07/29/17 07:44 Respiratory Rate 16 07/29/17 07:44 Blood Pressure 125/69 07/29/17 07:44 Pulse Oximetry 95 07/29/17 07:44 Inpatient Medications: Generic Name Dose Route Start Last Admin Trade Name Freq PRN Reason Stop Dose Admin Hydrocodone Bitart/Acetaminophen 1 tab 07/23/17 23:06 07/29/17 08:35 [place] 5/325 PO 1 tab Q6H PRN Administration Pain Albuterol/Ipratropium 3 ml 07/24/17 07:00 07/29/17 07:20 Duoneb AEROSOL 3 ml RTBID KELVIN Administration Albuterol/Ipratropium 3 ml 07/24/17 01:27 Duoneb AEROSOL PRN PRN Allopurinol 100 mg 07/25/17 21:00 07/29/17 08:25 Zyloprim PO 100 mg BID KELVIN Administration Apixaban 2.5 mg 07/24/17 09:38 07/29/17 08:23 Eliquis PO 2.5 mg BID KELVIN Administration Benzonatate 200 mg 07/24/17 01:34 07/29/17 08:22 Tessalon Perles PO 200 mg TID PRN Administration Cough Bumetanide 2 mg 07/28/17 10:41 07/29/17 08:30 Bumex 1 Mg/4 Ml Inj. IVP Not Given DAILY KELVIN Bumetanide 2 mg 07/28/17 17:30 07/29/17 08:23 Bumex 1 Mg Tab PO 2 mg BIDBS KELVIN Administration Buspirone HCl 10 mg 07/26/17 08:00 07/29/17 08:24 Buspar PO 10 mg 0800,1200 KELVIN Administration Calcitriol 0.5 mcg 07/26/17 09:00 07/29/17 08:25 Rocaltrol PO 0.5 mcg DAILY KELVIN Administration Chlorphenir/Hydrocodone Polistirex 5 ml 07/26/17 21:00 07/28/17 21:49 Tussionex PO 5 ml HS KELVIN Administration Diltiazem HCl 180 mg 07/25/17 21:00 07/29/17 08:24 Cardizem Cd 180 Mg PO 180 mg BID KELVIN Administration Glucose 37.5 gm 07/24/17 09:23 Glutose 15 PO PRN PRN Hypoglycemia Hydralazine HCl 50 mg 07/24/17 12:00 07/29/17 08:24 Apresoline PO 50 mg TIDWM KELVIN Administration Insulin Aspart 1 - 5 unit 07/24/17 09:23 07/27/17 17:22 Novolog SQ 1 unit SS PRN Administration Hyperglycemia Protocol Melatonin 3 mg 07/25/17 21:00 07/28/17 21:50 Melatonin PO 3 mg HS KELVIN Administration Metoprolol Succinate 200 mg 07/24/17 15:45 07/29/17 08:31 Toprol Xl PO 200 mg DAILY KELVIN Administration Ondansetron HCl 4 mg 07/23/17 23:06 Zofran IVP Q6H PRN Nausea &/or vomiting Potassium Chloride 40 meq 07/28/17 08:00 07/29/17 08:24 K-Dur 20 Meq Tablet PO 40 meq WB KELVIN Administration Sacubitril/Valsartan 1 tab 07/28/17 21:00 07/29/17 08:23 Entresto 24/26mg PO 1 tab BID KELVIN Administration Sertraline HCl 100 mg 07/24/17 09:15 07/29/17 08:24 Zoloft PO 100 mg DAILY KELVIN Administration Sodium Chloride 10 - 80 ml 07/23/17 20:20 07/27/17 21:13 Iv Flush IVF 10 ml PRN PRN Administration Flushing Discontinued Medications Generic Name Dose Route Start Last Admin Trade Name Freq PRN Reason Stop Dose Admin Albuterol/Ipratropium 3 ml 07/23/17 20:20 07/23/17 20:41 Duoneb AEROSOL 07/23/17 20:21 3 ml O ONE Administration Albuterol/Ipratropium 3 ml 07/24/17 01:16 07/24/17 01:19 Duoneb AEROSOL 3 ml RTBID PRN Administration Apixaban 2.5 mg 07/24/17 21:00 Eliquis PO BID KELVIN Azithromycin 250 mg 07/24/17 10:00 07/27/17 05:59 Zithromax PO 07/27/17 06:31 250 mg ACB KELVIN Administration Bumetanide 2 mg 07/28/17 15:00 Bumex 1 Mg/4 Ml Inj. IVP DAILY KELVIN Bupropion HCl 150 mg 07/24/17 09:15 07/24/17 10:25 Wellbutrin Xl PO 150 mg DAILY KELVIN Administration Buspirone HCl 10 mg 07/24/17 21:00 07/25/17 21:12 Buspar PO 10 mg BID KELVIN Administration Carvedilol 25 mg 07/24/17 09:00 07/24/17 08:12 Coreg PO 25 mg BID KELVIN Administration Carvedilol 25 mg 07/24/17 17:30 Coreg PO BIDWM KELVIN Diltiazem HCl 180 mg 07/24/17 09:00 07/24/17 08:12 Cardizem Cd 180 Mg PO 180 mg BID KELVIN Administration Diltiazem HCl 180 mg 07/25/17 09:00 07/25/17 08:36 Cardizem Cd 180 Mg PO 180 mg DAILY KELVIN Administration Furosemide 20 mg 07/24/17 00:33 07/24/17 01:51 Lasix 20 Mg/2 Ml IVP 07/24/17 00:34 20 mg ONCE ONE Administration Furosemide 40 mg 07/24/17 10:00 07/25/17 08:35 Lasix 40 Mg Tab PO 40 mg 0900,1700 KELVIN Administration Furosemide 80 mg 07/26/17 08:00 07/26/17 08:11 Lasix 40 Mg Tab PO 80 mg DAILY@0800 KELVIN Administration Furosemide 40 mg 07/26/17 12:00 Lasix 40 Mg Tab PO NOON KELVIN Furosemide 80 mg 07/26/17 17:00 07/27/17 08:35 Lasix 100 Mg/10 Ml IVP 80 mg [id number] KELVIN Administration Furosemide 40 mg 07/27/17 17:00 Lasix 40 Mg Tab PO 0900,1700 KELVIN Sodium Chloride 1,000 mls @ 150 mls/hr 07/23/17 22:00 07/25/17 21:55 Normal Saline IV 07/24/17 00:10 Infused .Q6H40M KELVIN Infusion Ceftriaxone Sodium 1 gm/ 100 mls @ 200 mls/hr 07/23/17 22:32 07/23/17 23:15 Sodium Chloride IV 07/23/17 23:01 Infused O ONE Infusion Ceftriaxone Sodium 1 g/ Sodium 50 mls @ 100 mls/hr 07/24/17 20:00 07/27/17 21 :36 Chloride IV 07/28/17 01:00 Infused Q24H KELVIN Infusion Potassium Chloride 20 meq 07/24/17 17:30 K-Dur 20 Meq Tablet PO BIDWM KELVIN Potassium Chloride 20 meq 07/24/17 09:45 07/26/17 08:14 K-Dur 20 Meq Tablet PO 20 meq BIDWM KELVIN Administration Potassium Chloride 40 meq 07/26/17 17:30 07/27/17 08:33 K-Dur 20 Meq Tablet PO 40 meq BIDWM KELVIN Administration Results 07/28/17 03:51 07/29/17 04:43 Comprehensive Metabolic Panel 07/29/17 Range/Units 04:43 Sodium 139 (134-144) MEQ/L Potassium 4.2 (3.6-5) MEQ/L Chloride 99 (98-107) MEQ/L Carbon Dioxide 28 (22-30) MEQ/L BUN 37.0 H (7-17) MG/DL Creatinine 1.3 H D (0.7-1.2) mg/dL Glucose 110 (65-110) MG/DL Calcium 10.0 (8.4-10.2) MG/DL Intake and Output 07/28/17 07/29/17 07/29/17 22:59 06:59 14:59 Intake Total 300 / 300 120 / 120 Output Total 1000 / 1000 1100 / 1100 Balance -1000 / -1000 -800 / -800 120 / 120 Intake: Oral 300 / 300 120 / 120 Output: Urine 1000 / 1000 1100 / 1100 Other: Urine Appearance Clear Clear Urine Color Yellow Dark Yellow Urine Odor Normal Normal # Voids 1 1 Weight 82.6 kg Patient Weight 07/30/17 06:59 Weight 82.6 kg Assessment and Plan - Assessment and Plan (1) CAP (community acquired pneumonia) Current visit: Yes Status: Acute (2) Atrial fibrillation with RVR Current visit: Yes Status: Chronic (3) Pulmonary hypertension Current visit: Yes Status: Acute (4) CAD (coronary artery disease) Current visit: Yes Status: Acute (5) Acute systolic (congestive) heart failure Current visit: Yes Status: Acute - Attestation Attestation Narrative: 07/29/17 09:41 This patient has been seen and evaluated by my midlevel Tyra on the date of this note. All aspects of the patient's care was discussed with me in detail and I agree with the plan of care and the note above. Hospital Course Summary Disclaimer: The visit summary below is not to be considered part of the above Progress Note.
[2017-07-25] MEDS: CEFTRIAXONE 1 G in NS 50 ML IV SCH (21:00)
[2017-07-25] MEDS: ALLOPURINOL 100 MG TABLET PO SCH (21:12)
[2017-07-25] MEDS: BENZONATATE 200 MG CAPSULE PO PRN (21:22)
[2017-07-26] MEDS: AZITHROMYCIN 250 MG TABLET PO SCH (06:11)
[2017-07-26] MEDS: MELATONIN 1 MG TABLET PO SCH ×2 (06:35→21:18)
[2017-07-26] MEDS ORDERED: FUROSEMIDE 40 MG TABLET PO SCH ×2 (08:00→12:00)
[2017-07-26] MEDS: APIXABAN 2.5 MG TABLET PO SCH ×2 (08:11→21:18)
[2017-07-26] MEDS: METOPROLOL SUCCINATE 200 MG PO SCH (08:11)
[2017-07-26] MEDS: CALCITRIOL 0.25 MCG CAPSULE PO SCH (08:12)
[2017-07-26] MEDS: SERTRALINE 100 MG TABLET PO SCH (08:12)
[2017-07-26] MEDS: HYDRALAZINE 25 MG TABLET PO SCH ×3 (08:14→16:56)
[2017-07-26] MEDS: BUSPIRONE 10 MG TABLET PO SCH ×2 (08:14→11:53)
[2017-07-26] MEDS: ALLOPURINOL 100 MG TABLET PO SCH ×2 (08:14→21:18)
[2017-07-26] MEDS: ALBUTEROL/IPRATROPIUM 2.5mg-0.5mg/3ml NEB AEROSOL SCH ×2 (08:40→19:09)
--- NOTE | 2017-07-26 11:18 | Cardiology Progress Note ---
<Sandra Matos L - Last Filed: 07/27/17 07:51> Subjective Principal diagnosis: Chronic Atrial Fibrillation Interval history: Pt reports feeling improved, continues to have a productive cough. Denies chest pain or palpitations. Discussed findings of increased fluid volume and using IV lasix to treat today. Exam Vital signs: Temperature 99.3 F 07/26/17 07:26 Pulse Rate 103 H 07/26/17 08:00 Respiratory Rate 18 07/26/17 08:40 Blood Pressure 156/69 H 07/26/17 07:26 Pulse Oximetry 94 07/26/17 08:40 Inpatient Medications: Generic Name Dose Route Start Last Admin Trade Name Freq PRN Reason Stop Dose Admin Hydrocodone Bitart/Acetaminophen 1 tab 07/23/17 23:06 07/25/17 21:52 Walland 5/325 PO 1 tab Q6H PRN Administration Pain Albuterol/Ipratropium 3 ml 07/24/17 07:00 07/26/17 08:40 Duoneb AEROSOL 3 ml RTBID KELVIN Administration Albuterol/Ipratropium 3 ml 07/24/17 01:27 Duoneb AEROSOL PRN PRN Allopurinol 100 mg 07/25/17 21:00 07/26/17 08:14 Zyloprim PO 100 mg BID KELVIN Administration Apixaban 2.5 mg 07/24/17 09:38 07/26/17 08:11 Eliquis PO 2.5 mg BID KELVIN Administration Azithromycin 250 mg 07/24/17 10:00 07/26/17 06:11 Zithromax Eq. PO 07/27/17 06:31 250 mg ACB KELVIN Administration Benzonatate 200 mg 07/24/17 01:34 07/25/17 21:22 Tessalon Perles PO 200 mg TID PRN Administration Cough Buspirone HCl 10 mg 07/26/17 08:00 07/26/17 08:14 Buspar PO 10 mg 0800,1200 KELVIN Administration Calcitriol 0.5 mcg 07/26/17 09:00 07/26/17 08:12 Rocaltrol PO 0.5 mcg DAILY KELVIN Administration Diltiazem HCl 180 mg 07/25/17 21:00 07/26/17 08:12 Cardizem Cd 180 Mg PO 180 mg BID KELVIN Administration Furosemide 80 mg 07/26/17 08:00 04/01/18 08:11 Lasix 40 Mg Tab PO 80 mg DAILY@0800 KELVIN Administration Furosemide 40 mg 07/26/17 12:00 Lasix 40 Mg Tab PO NOON KELVIN Glucose 37.5 gm 07/24/17 09:23 Glutose 15 PO PRN PRN Hypoglycemia Hydralazine HCl 50 mg 07/24/17 12:00 07/26/17 08:14 Apresoline PO 50 mg TIDWM KELVIN Administration Ceftriaxone Sodium 1 g/ Sodium 50 mls @ 100 mls/hr 07/24/17 20:00 07/25/17 21 :30 Chloride IV Infused Q24H KELVIN Infusion Insulin Aspart 1 - 5 unit 07/24/17 09:23 07/24/17 12:21 Novolog SQ 1 unit SS PRN Administration Hyperglycemia Protocol Melatonin 3 mg 07/25/17 21:00 07/26/17 06:35 Melatonin PO Not Given HS KELVIN Metoprolol Succinate 200 mg 07/24/17 15:45 07/26/17 08:11 Toprol Xl PO 200 mg DAILY KELVIN Administration Ondansetron HCl 4 mg 07/23/17 23:06 Zofran IVP Q6H PRN Nausea &/or vomiting Potassium Chloride 20 meq 07/24/17 09:45 07/26/17 08:14 K-Dur 20 Meq Tablet PO 20 meq BIDWM KELVIN Administration Sertraline HCl 100 mg 07/24/17 09:15 07/26/17 08:12 Zoloft PO 100 mg DAILY KELVIN Administration Sodium Chloride 10 - 80 ml 07/23/17 20:20 07/25/17 21:12 Iv Flush IVF 10 ml PRN PRN Administration Flushing Discontinued Medications Generic Name Dose Route Start Last Admin Trade Name Freq PRN Reason Stop Dose Admin Albuterol/Ipratropium 3 ml 07/23/17 20:20 07/23/17 20:41 Duoneb AEROSOL 07/23/17 20:21 3 ml O ONE Administration Albuterol/Ipratropium 3 ml 07/24/17 01:16 07/24/17 01:19 Duoneb AEROSOL 3 ml RTBID PRN Administration Apixaban 2.5 mg 07/24/17 21:00 Eliquis PO BID KELVIN Bupropion HCl 150 mg 07/24/17 09:15 07/24/17 10:25 Wellbutrin Xl PO 150 mg DAILY KELVIN Administration Buspirone HCl 10 mg 07/24/17 21:00 07/25/17 21:12 Buspar PO 10 mg BID KELVIN Administration Carvedilol 25 mg 07/24/17 09:00 07/24/17 08:12 Coreg PO 25 mg BID KELVIN Administration Carvedilol 25 mg 07/24/17 17:30 Coreg PO BIDWM KELVIN Diltiazem HCl 180 mg 07/24/17 09:00 07/24/17 08:12 Cardizem Cd 180 Mg PO 180 mg BID KELVIN Administration Diltiazem HCl 180 mg 07/25/17 09:00 07/25/17 08:36 Cardizem Cd 180 Mg PO 180 mg DAILY KELVIN Administration Furosemide 20 mg 07/24/17 00:33 07/24/17 01:51 Lasix 20 Mg/2 Ml IVP 07/24/17 00:34 20 mg ONCE ONE Administration Furosemide 40 mg 07/24/17 10:00 07/25/17 08:35 Lasix 40 Mg Tab PO 40 mg 0900,1700 KELVIN Administration Sodium Chloride 1,000 mls @ 150 mls/hr 07/23/17 22:00 07/25/17 21:55 Normal Saline IV 07/24/17 00:10 Infused .Q6H40M KELVIN Infusion Ceftriaxone Sodium 1 gm/ 100 mls @ 200 mls/hr 07/23/17 22:32 07/23/17 23:15 Sodium Chloride IV 07/23/17 23:01 Infused O ONE Infusion Potassium Chloride 20 meq 07/24/17 17:30 K-Dur 20 Meq Tablet PO BIDWM KELVIN - Constitutional no acute distress - Routine HEENT Exam Head: Present: normocephalic, atraumatic ENT: Present: mucous membranes moist - Routine Respiratory Exam Present: rhonchi, diminished air movement - Routine Cardiovascular Exam Present: no murmur, tachycardia, irregular rhythm - Routine Abdominal Exam Present: soft, normoactive bowel sounds - Routine Extremities Exam Present: no edema - Routine Skin Exam Present: intact - Routine Neurological Exam Present: alert, oriented X3 - Routine Psychiatric Exam Present: normal affect, normal thought process Results 07/27/17 04:08 07/27/17 04:08 CBC 07/26/17 Range/Units 04:54 WBC 12.9 H (4.5-11.0) T/MM3 RBC 3.32 L (4.00-5.20) M/MM3 Hgb 10.0 L D (12-16) GM/DL Hct 31.0 L D (36-46) % Plt Count 213 (130-400) T/MM3 Neut # (Auto) 9.6 H (1.8-7.7) T/MM3 Lymph # (Auto) 1.5 (1-4.8) T/MM3 [place] # (Auto) 1.6 H (0-0.8) T/MM3 Eos # (Auto) 0.1 (0-0.5) T/MM3 Baso # (Auto) 0.0 (0-0.2) T/MM3 Comprehensive Metabolic Panel 07/26/17 Range/Units 04:54 Sodium 136 (134-144) MEQ/L Potassium 3.7 (3.6-5) MEQ/L Chloride 98 (98-107) MEQ/L Carbon Dioxide 25 (22-30) MEQ/L BUN 36.0 H (7-17) MG/DL Creatinine 1.5 H D (0.7-1.2) mg/dL Glucose 102 (65-110) MG/DL Calcium 8.8 D (8.4-10.2) MG/DL Albumin 3.4 L (3.5-5.0) g/dL Intake and Output 07/25/17 07/26/17 07/26/17 22:59 06:59 14:59 Intake Total 790 / 790 480 / 480 Output Total 200 / 200 150 / 150 200 / 200 Balance 590 / 590 -150 / -150 280 / 280 Intake: IV 50 / 50 Ceftriaxone 1 g In Ns 50 ml @ 50 / 50 100 mls/hr IV Q24H [facility] Rx#: [id number] Oral 740 / 740 480 / 480 Output: Urine 200 / 200 150 / 150 200 / 200 Other: Urine Appearance Clear Clear Clear Urine Color Yellow Yellow Yellow Urine Odor Normal Strong # Voids 1 Weight 84.8 kg Patient Weight 07/27/17 06:59 Weight 84.8 kg Assessment and Plan - Assessment and Plan (1) Atrial fibrillation with RVR Status: Chronic (2) Diastolic congestive heart failure Status: Acute (3) Pulmonary hypertension Status: Acute (4) CAD (coronary artery disease) Status: Acute (5) CAP (community acquired pneumonia) Status: Acute - Assessment and Plan 07/24/17: CAP and hypoxia per attending. BNP elevated, CHF exacerbation mild by clinical exam; likely acute respiratory illness induced. Home lasix restarted 40mg bid, pt had one time dose of lasix 20mg IV. DC coreg 25mg bid. change Diltiazem to 180mg daily, initiate metoprolol succinate 200mg daily. Continue Eliquis 2.5mg bid, metoprolol and diltiazem for rate control. Continue home Zocor, statin. 07/25/17: Pt stable today, HR hanging around 80-120's. Will increase diltiazem to bid to for improved rate control, diltiazem cd 180mg bid. Continue metoprolol succinate 200mg daily, changed from home coreg for improved rate effect of BB therapy. Home Eliquis 2.5mg bid, low dose due to renal function impairment. Home Zocor. Discussed additional diureses with Dr. Fair, I think the patient is mildly fluid volume up, diuresis would improve her respiratory status and aid in rate control. 07/26/17: Tele afib, rate improved today, in the 80's at rest, up to 100's with activity. Chest xray this AM look like mild increased vascular congestion, weight up and I &O's reflect positive fluid gain since admission. Repeat BNP is up from 3300 to 5300. DC PO lasix, IV lasix 80mg bid. PO potassium 20meq TID Continue Metoprolol succinate 200mg daily, Diltiazem 180mg bid & Eliquis for AFib management. Obtain ECHO in AM to eval EF and right heart status. Last ECHO in office 08/2016 , EF 60%, diastolic dysfunction, no significant valvular dysfunction, IVC dilated. Continue home Eliquis 2.5mg bid Hospital Course Summary Disclaimer: The visit summary below is not to be considered part of the above Progress Note. Hospital Course: 07/24/17 Mrs. Rosas was admitted overnight with increasing dyspnea and pneumonia with treatment initiated as an outpatient. Oxygen saturation in the 80s at home prompting ER evaluation and subsequent admission. Continue ceftriaxone/azithromycin Wean oxygen as tolerated to maintain sats >90 Breathing treatments, RT consult Continue CPAP with sleep Follow sputum culture Continue home medications (hold parameters and reduced doses of some meds due to acute illness) Monitor on telemetry for atrial fibrillation; rate control poor-Dr. Bridges consulted. Diabetic diet, sliding scale insulin (on no basal at home), glucose monitoring 07/25/17 Continue antibiotics-day 3 ceftriaxone/azithromycin; my review of chest x-ray does not reveal infiltrate. Repeat chest x-ray in a.m., sputum culture pending. Persistent leukocytosis with fever overnight-blood cultures to be drawn if recurs. Continue supplemental oxygen as needed. Continue diuresis. Heart rate poorly controlled overnight with rates 110-150 by review of vital signs and telemetry strips. Diltiazem added to metoprolol by cardiology this morning and currently heart rate ranging upper 90s-110. Patient indicates digoxin recently discontinued. Renal function stable. <Fermin Bridges - Last Filed: 08/03/17 13:46> Exam Vital signs: Temperature 97.2 F 07/30/17 12:00 Pulse Rate 83 07/30/17 12:00 Respiratory Rate 18 07/30/17 12:00 Blood Pressure 110/63 07/30/17 12:00 Pulse Oximetry 97 07/30/17 12:00 Inpatient Medications: Discontinued Medications Generic Name Dose Route Start Last Admin Trade Name Freq PRN Reason Stop Dose Admin Hydrocodone Bitart/Acetaminophen 1 tab 07/23/17 23:06 07/29/17 08:35 Walland 5/325 PO 1 tab Q6H PRN Administration Pain Albuterol/Ipratropium 3 ml 07/23/17 20:20 07/23/17 20:41 Duoneb AEROSOL 07/23/17 20:21 3 ml O ONE Administration Albuterol/Ipratropium 3 ml 07/24/17 01:16 07/24/17 01:19 Duoneb AEROSOL 3 ml RTBID PRN Administration Albuterol/Ipratropium 3 ml 07/24/17 07:00 07/30/17 07:07 Duoneb AEROSOL 3 ml RTBID KELVIN Administration Albuterol/Ipratropium 3 ml 07/24/17 01:27 Duoneb AEROSOL PRN PRN Allopurinol 100 mg 07/25/17 21:00 07/30/17 08:40 Zyloprim PO 100 mg BID KELVIN Administration Apixaban 2.5 mg 07/24/17 21:00 Eliquis PO BID KELVIN Apixaban 2.5 mg 07/24/17 09:38 07/30/17 08:40 Eliquis PO 2.5 mg BID KELVIN Administration Azithromycin 250 mg 07/24/17 10:00 07/27/17 05:59 Zithromax PO 07/27/17 06:31 250 mg ACB KELVIN Administration Benzonatate 200 mg 07/24/17 01:34 07/29/17 20:55 Tessalon Perles PO 200 mg TID PRN Administration Cough Bumetanide 2 mg 07/28/17 15:00 Bumex 1 Mg/4 Ml Inj. IVP DAILY KELVIN Bumetanide 2 mg 07/28/17 10:41 07/29/17 08:30 Bumex 1 Mg/4 Ml Inj. IVP Not Given DAILY KELVIN Bumetanide 2 mg 07/28/17 17:30 07/29/17 08:23 Bumex 1 Mg Tab PO 2 mg BIDBS KELVIN Administration Bumetanide 2 mg 07/29/17 14:00 07/30/17 08:39 Bumex 1 Mg Tab PO 2 mg [id number] KELVIN Administration Bupropion HCl 150 mg 07/24/17 09:15 07/24/17 10:25 Wellbutrin Xl PO 150 mg DAILY KELVIN Administration Buspirone HCl 10 mg 07/24/17 21:00 07/25/17 21:12 Buspar PO 10 mg BID KELVIN Administration Buspirone HCl 10 mg 07/26/17 08:00 07/30/17 11:58 Buspar PO 10 mg 0800,1200 KELVIN Administration Calcitriol 0.5 mcg 07/26/17 09:00 07/30/17 08:36 Rocaltrol PO 0.5 mcg DAILY KELVIN Administration Carvedilol 25 mg 07/24/17 09:00 07/24/17 08:12 Coreg PO 25 mg BID KELVIN Administration Carvedilol 25 mg 07/24/17 17:30 Coreg PO BIDWM KELVIN Chlorphenir/Hydrocodone Polistirex 5 ml 07/26/17 21:00 07/29/17 20:53 Tussionex PO 5 ml HS KELVIN Administration Diltiazem HCl 180 mg 07/24/17 09:00 07/24/17 08:12 Cardizem Cd 180 Mg PO 180 mg BID KELVIN Administration Diltiazem HCl 180 mg 07/25/17 09:00 07/25/17 08:36 Cardizem Cd 180 Mg PO 180 mg DAILY KELVIN Administration Diltiazem HCl 180 mg 07/25/17 21:00 07/30/17 08:37 Cardizem Cd 180 Mg PO 180 mg BID KELVIN Administration Furosemide 20 mg 07/24/17 00:33 07/24/17 01:51 Lasix 20 Mg/2 Ml IVP 07/24/17 00:34 20 mg ONCE ONE Administration Furosemide 40 mg 07/24/17 10:00 07/25/17 08:35 Lasix 40 Mg Tab PO 40 mg 0900,1700 KELVIN Administration Furosemide 80 mg 07/26/17 08:00 07/26/17 08:11 Lasix 40 Mg Tab PO 80 mg DAILY@0800 KELVIN Administration Furosemide 40 mg 07/26/17 12:00 Lasix 40 Mg Tab PO NOON KELVIN Furosemide 80 mg 07/26/17 17:00 07/27/17 08:35 Lasix 100 Mg/10 Ml IVP 80 mg [id number] KELVIN Administration Furosemide 40 mg 07/27/17 17:00 Lasix 40 Mg Tab PO 0900,1700 KELVIN Glucose 37.5 gm 07/24/17 09:23 Glutose 15 PO PRN PRN Hypoglycemia Hydralazine HCl 50 mg 07/24/17 12:00 07/30/17 11:58 Apresoline PO 50 mg TIDWM KELVIN Administration Sodium Chloride 1,000 mls @ 150 mls/hr 07/23/17 22:00 07/25/17 21:55 Normal Saline IV 07/24/17 00:10 Infused .Q6H40M KELVIN Infusion Ceftriaxone Sodium 1 gm/ 100 mls @ 200 mls/hr 07/23/17 22:32 07/23/17 23:15 Sodium Chloride IV 07/23/17 23:01 Infused O ONE Infusion Ceftriaxone Sodium 1 g/ Sodium 50 mls @ 100 mls/hr 07/24/17 20:00 07/27/17 21 :36 Chloride IV 07/28/17 01:00 Infused Q24H KELVIN Infusion Insulin Aspart 1 - 5 unit 07/24/17 09:23 07/27/17 17:22 Novolog SQ 1 unit SS PRN Administration Hyperglycemia Protocol Melatonin 3 mg 07/25/17 21:00 04/04/18 20:53 Melatonin PO 3 mg HS KELVIN Administration Metoprolol Succinate 200 mg 07/24/17 15:45 07/30/17 08:38 Toprol Xl PO 200 mg DAILY KELVIN Administration Ondansetron HCl 4 mg 07/23/17 23:06 Zofran IVP Q6H PRN Nausea &/or vomiting Potassium Chloride 20 meq 07/24/17 17:30 K-Dur 20 Meq Tablet PO BIDWM KELVIN Potassium Chloride 20 meq 07/24/17 09:45 07/26/17 08:14 K-Dur 20 Meq Tablet PO 20 meq BIDWM KELVIN Administration Potassium Chloride 40 meq 07/26/17 17:30 07/27/17 08:33 K-Dur 20 Meq Tablet PO 40 meq BIDWM KELVIN Administration Potassium Chloride 40 meq 07/28/17 08:00 07/29/17 08:24 K-Dur 20 Meq Tablet PO 40 meq WB KELVIN Administration Sacubitril/Valsartan 1 tab 07/28/17 21:00 07/30/17 08:38 Entresto 24/26mg PO 1 tab BID KELVIN Administration Sertraline HCl 100 mg 07/24/17 09:15 07/30/17 08:38 Zoloft PO 100 mg DAILY KELVIN Administration Sodium Chloride 10 - 80 ml 07/23/17 20:20 07/27/17 21:13 Iv Flush IVF 10 ml PRN PRN Administration Flushing Results 07/28/17 03:51 07/30/17 04:30 Assessment and Plan - Assessment and Plan (1) CAP (community acquired pneumonia) Status: Acute (2) Atrial fibrillation with RVR Status: Chronic (3) Pulmonary hypertension Status: Acute (4) CAD (coronary artery disease) Status: Acute (5) Acute systolic (congestive) heart failure Status: Acute - Attestation Attestation Narrative: 08/03/17 13:46 Recommendation After examining the patient I agree with the above assessment. I am involved in the formulation of the patient's plan of care. Hospital Course Summary Disclaimer: The visit summary below is not to be considered part of the above Progress Note.
--- NOTE | 2017-07-26 13:49 | Progress Note ---
- Date 07/26/17 Subjective: Mrs. Rosas reports persistent paroxysmal cough. She has minimal dyspnea and overall feels better but cough comes in spells that she can control and continues to have some minimally discolored sputum production. She denied chest pain or palpitations; has had no nausea or vomiting, and denied recurrent fevers or chills. She denied lightheadedness when she is up to the bathroom and is voiding without difficulty. Objective Vital signs: Temperature 99.8 F 07/26/17 11:27 Pulse Rate 99 07/26/17 11:27 Respiratory Rate 22 07/26/17 11:27 Blood Pressure 144/70 H 07/26/17 11:27 Pulse Oximetry 95 -2 L 07/26/17 11:27 I/O 1620/550 NAD, alert, frequent cough-forceful Mild conjunctival injection, sclera anicteric, oropharynx clear Respirations nonlabored with good airflow, breath sounds are clear over all Irregular cardiac rhythm, S1-S2 Abdomen is soft, nontender, and possible sounds are present although diminished Trace lower extremity edema MAEW Cooperative, calm, pleasant Rhythm: Atrial Fibrillation with Normal Ventricular Rate Height/Weight/BMI: Height 1.5 m Weight 84.8 kg Body Mass Index 36.9 Results - Labs CBC & Chem 7: 07/26/17 04:54 07/26/17 04:54 Labs: ProBNP 5350 Magnesium 2.2, phosphorus 4.2 Microbiology Results: Microbiology 07/23/17 22:47 Sputum, Expectorated Gram Stain - Final 07/23/17 22:47 Sputum, Expectorated Sputum Culture - Preliminary - Imaging and Cardiology Chest x-ray Status: image reviewed by me (no focal infiltrate, increased vascular markings compared to prior film-discussed with cardiology) Assessment and Plan (1) Congestive heart failure Problem details: Diastolic Current visit: Yes Status: Acute (2) CAP (community acquired pneumonia) Current visit: Yes Status: Acute (3) Atrial fibrillation with RVR Current visit: Yes Status: Chronic Assessment and Plan: Assessment: Acute hypoxic respiratory failure Sepsis-present on admission (leukocytosis, tachypnea, tachycardia) Pneumonia/bronchitis-acute Atrial Fibrillation with RVR Diastolic heart failure with exacerbation CKD-Stage IV KIRSTIN-CPAP with sleep HTN Dyslipidemia Osteoarthritis Depression DM2-insulin dependent Obesity Plan: Continue antibiotics-day 4 ceftriaxone/azithromycin; my review of chest x-ray does not reveal infiltrate again today but there is increased heart failure. Cardiology increasing diuretics-converted to IV administration. White count normalizing, no recurrent fever. Slept poorly due to persistent cough and not using CPAP due to ongoing cough. Add Tussionex at night for symptom management Continue supplemental oxygen as needed. Remains in atrial fibrillation (chronic) with improved rate control on metoprolol and diltiazem. Renal function stable-baseline creatinine approximately 1.8-1.9; sees Dr. Uriah Nicole Continue CPAP with sleep as tolerates. Blood sugars adequately controlled. Plans reviewed with cardiology. - Physician Narrative Narrative: Date: 07/26/17 Time: 1345 Hospital Course Summary Disclaimer: The visit summary below is not to be considered part of the above Progress Note. Hospital Course: 07/24/17 Mrs. Rosas was admitted overnight with increasing dyspnea and pneumonia with treatment initiated as an outpatient. Oxygen saturation in the 80s at home prompting ER evaluation and subsequent admission. Continue ceftriaxone/azithromycin Wean oxygen as tolerated to maintain sats >90 Breathing treatments, RT consult Continue CPAP with sleep Follow sputum culture Continue home medications (hold parameters and reduced doses of some meds due to acute illness) Monitor on telemetry for atrial fibrillation; rate control poor-Dr. Bridges consulted. Diabetic diet, sliding scale insulin (on no basal at home), glucose monitoring 07/25/17 Continue antibiotics-day 3 ceftriaxone/azithromycin; my review of chest x-ray does not reveal infiltrate. Repeat chest x-ray in a.m., sputum culture pending. Persistent leukocytosis with fever overnight-blood cultures to be drawn if recurs. Continue supplemental oxygen as needed. Continue diuresis. Heart rate poorly controlled overnight with rates 110-150 by review of vital signs and telemetry strips. Diltiazem added to metoprolol by cardiology this morning and currently heart rate ranging upper 90s-110. Patient indicates digoxin recently discontinued. Renal function stable. 07/26/17 Continue antibiotics-day 4 ceftriaxone/azithromycin; my review of chest x-ray does not reveal infiltrate again today but there is increased heart failure. Cardiology increasing diuretics-converted to IV administration. White count normalizing, no recurrent fever. Slept poorly due to persistent cough and not using CPAP due to ongoing cough. Add Tussionex at night for symptom management Remains in atrial fibrillation (chronic) with improved rate control on metoprolol and diltiazem.
--- NOTE | 2017-07-26 16:48 | XRay Report ---
INDICATION: hypoxia PROCEDURE: CHEST 2-VIEWS UPRIGHT (PA & LAT) Encounter: Initial COMPARISON: July 23, 2017 FINDINGS: There is increasing airspace consolidation in the retrocardiac left lower lobe. Chronic interstitial prominence bilaterally. Upper lung jenkins are clear. No pneumothorax or definite effusion. Heart size and mediastinal contours are stable. Impression: Developing left lower lobe airspace disease could be due to atelectasis or pneumonia. .
[2017-07-26] MEDS: BENZONATATE 200 MG CAPSULE PO PRN ×2 (16:56→22:16)
[2017-07-26] MEDS: FUROSEMIDE 100 MG/10 ML INJECTION IVP SCH (16:57)
[2017-07-26] MEDS: INSULIN ASPART 100unit/ml INJECTION SQ PRN (16:57)
[2017-07-26] MEDS: CEFTRIAXONE 1 G in NS 50 ML IV SCH (21:18)
[2017-07-26] MEDS: HYDROCODONE/APAP 5mg/325mg TABLET PO PRN (22:16)
[2017-07-26] MEDS: HYDROCODONE/CHLORPHENIRAMINE ER ORAL LIQ 5ml PO SCH (22:26)
[2017-07-27] MEDS: AZITHROMYCIN 250 MG TABLET PO SCH (05:59)
[2017-07-27] MEDS: ALBUTEROL/IPRATROPIUM 2.5mg-0.5mg/3ml NEB AEROSOL SCH ×2 (07:24→19:17)
[2017-07-27] MEDS: HYDRALAZINE 25 MG TABLET PO SCH ×3 (08:33→17:21)
[2017-07-27] MEDS: BUSPIRONE 10 MG TABLET PO SCH ×2 (08:33→11:57)
[2017-07-27] MEDS: APIXABAN 2.5 MG TABLET PO SCH ×2 (08:34→21:14)
[2017-07-27] MEDS: SERTRALINE 100 MG TABLET PO SCH (08:34)
[2017-07-27] MEDS: ALLOPURINOL 100 MG TABLET PO SCH ×2 (08:34→21:14)
[2017-07-27] MEDS: CALCITRIOL 0.25 MCG CAPSULE PO SCH (08:34)
[2017-07-27] MEDS: METOPROLOL SUCCINATE 200 MG PO SCH (08:34)
[2017-07-27] MEDS: FUROSEMIDE 100 MG/10 ML INJECTION IVP SCH (08:35)
--- NOTE | 2017-07-27 10:27 | Cardiology Progress Note ---
Subjective Principal diagnosis: Chronic Atrial Fibrillation Interval history: Pt reports feeling improved, continues to have a productive cough. Denies chest pain or palpitations. Discussed findings of increased fluid volume and using IV lasix to treat. Patient in agreement with plan of care. She feels better today 07/27 Exam Vital signs: Temperature 98.4 F 07/27/17 08:24 Pulse Rate 89 07/27/17 08:24 Respiratory Rate 20 07/27/17 08:24 Blood Pressure 123/69 07/27/17 08:24 Pulse Oximetry 97 07/27/17 08:24 Inpatient Medications: Generic Name Dose Route Start Last Admin Trade Name Freq PRN Reason Stop Dose Admin Hydrocodone Bitart/Acetaminophen 1 tab 07/23/17 23:06 07/26/17 22:16 [place] 5/325 PO 1 tab Q6H PRN Administration Pain Albuterol/Ipratropium 3 ml 07/24/17 07:00 07/27/17 07:24 Duoneb AEROSOL 3 ml RTBID KELVIN Administration Albuterol/Ipratropium 3 ml 07/24/17 01:27 Duoneb AEROSOL PRN PRN Allopurinol 100 mg 07/25/17 21:00 07/27/17 08:34 Zyloprim PO 100 mg BID KELVIN Administration Apixaban 2.5 mg 07/24/17 09:38 07/27/17 08:34 Eliquis PO 2.5 mg BID KELVIN Administration Benzonatate 200 mg 07/24/17 01:34 07/26/17 22:16 Tessalon Perles PO 200 mg TID PRN Administration Cough Buspirone HCl 10 mg 07/26/17 08:00 07/27/17 08:33 Buspar PO 10 mg 0800,1200 KELVIN Administration Calcitriol 0.5 mcg 07/26/17 09:00 07/27/17 08:34 Rocaltrol PO 0.5 mcg DAILY KELVIN Administration Chlorphenir/Hydrocodone Polistirex 5 ml 07/26/17 21:00 07/26/17 22:26 Tussionex PO Not Given HS KELVIN Diltiazem HCl 180 mg 07/25/17 21:00 07/27/17 08:34 Cardizem Cd 180 Mg PO 180 mg BID KELVIN Administration Furosemide 80 mg 07/26/17 17:00 07/27/17 08:35 Lasix 100 Mg/10 Ml IVP 80 mg [id number] KELVIN Administration Glucose 37.5 gm 07/24/17 09:23 Glutose 15 PO PRN PRN Hypoglycemia Hydralazine HCl 50 mg 07/24/17 12:00 07/27/17 08:33 Apresoline PO 50 mg TIDWM KELVIN Administration Ceftriaxone Sodium 1 g/ Sodium 50 mls @ 100 mls/hr 07/24/17 20:00 07/26/17 21 :48 Chloride IV 07/28/17 01:00 Infused Q24H KELVIN Infusion Insulin Aspart 1 - 5 unit 07/24/17 09:23 07/26/17 16:57 Novolog SQ 1 unit SS PRN Administration Hyperglycemia Protocol Melatonin 3 mg 07/25/17 21:00 07/26/17 21:18 Melatonin PO 3 mg HS KELVIN Administration Metoprolol Succinate 200 mg 07/24/17 15:45 07/27/17 08:34 Toprol Xl PO 200 mg DAILY KELVIN Administration Ondansetron HCl 4 mg 07/23/17 23:06 Zofran IVP Q6H PRN Nausea &/or vomiting Potassium Chloride 40 meq 07/26/17 17:30 07/27/17 08:33 K-Dur 20 Meq Tablet PO 40 meq BIDWM KELVIN Administration Sertraline HCl 100 mg 07/24/17 09:15 07/27/17 08:34 Zoloft PO 100 mg DAILY KELVIN Administration Sodium Chloride 10 - 80 ml 07/23/17 20:20 07/25/17 21:12 Iv Flush IVF 10 ml PRN PRN Administration Flushing Discontinued Medications Generic Name Dose Route Start Last Admin Trade Name Kamarq PRN Reason Stop Dose Admin Albuterol/Ipratropium 3 ml 07/23/17 20:20 07/23/17 20:41 Duoneb AEROSOL 07/23/17 20:21 3 ml O ONE Administration Albuterol/Ipratropium 3 ml 07/24/17 01:16 07/24/17 01:19 Duoneb AEROSOL 3 ml RTBID PRN Administration Apixaban 2.5 mg 07/24/17 21:00 Eliquis PO BID KELVIN Azithromycin 250 mg 07/24/17 10:00 07/27/17 05:59 Zithromax PO 07/27/17 06:31 250 mg ACB KELVIN Administration Bupropion HCl 150 mg 07/24/17 09:15 07/24/17 10:25 Wellbutrin Xl PO 150 mg DAILY KELVIN Administration Buspirone HCl 10 mg 07/24/17 21:00 07/25/17 21:12 Buspar PO 10 mg BID KELVIN Administration Carvedilol 25 mg 07/24/17 09:00 07/24/17 08:12 Coreg PO 25 mg BID KELVIN Administration Carvedilol 25 mg 07/24/17 17:30 Coreg PO BIDWM KELVIN Diltiazem HCl 180 mg 07/24/17 09:00 07/24/17 08:12 Cardizem Cd 180 Mg PO 180 mg BID KELVIN Administration Diltiazem HCl 180 mg 07/25/17 09:00 07/25/17 08:36 Cardizem Cd 180 Mg PO 180 mg DAILY KELVIN Administration Furosemide 20 mg 07/24/17 00:33 07/24/17 01:51 Lasix 20 Mg/2 Ml IVP 07/24/17 00:34 20 mg ONCE ONE Administration Furosemide 40 mg 07/24/17 10:00 07/25/17 08:35 Lasix 40 Mg Tab PO 40 mg 0900,1700 KELVIN Administration Furosemide 80 mg 07/26/17 08:00 07/26/17 08:11 Lasix 40 Mg Tab PO 80 mg DAILY@0800 KELVIN Administration Furosemide 40 mg 07/26/17 12:00 Lasix 40 Mg Tab PO NOON KELVIN Sodium Chloride 1,000 mls @ 150 mls/hr 07/23/17 22:00 07/25/17 21:55 Normal Saline IV 07/24/17 00:10 Infused .Q6H40M KELVIN Infusion Ceftriaxone Sodium 1 gm/ 100 mls @ 200 mls/hr 07/23/17 22:32 07/23/17 23:15 Sodium Chloride IV 07/23/17 23:01 Infused O ONE Infusion Potassium Chloride 20 meq 07/24/17 17:30 K-Dur 20 Meq Tablet PO BIDWM KELVIN Potassium Chloride 20 meq 07/24/17 09:45 07/26/17 08:14 K-Dur 20 Meq Tablet PO 20 meq BIDWM KELVIN Administration - Constitutional no acute distress - Routine HEENT Exam Head: Present: normocephalic, atraumatic Eye: Present: EOMI - Routine Neck Exam Present: supple. Absent: carotid bruit - Routine Respiratory Exam Present: decreased breath sounds, wheezes. Absent: accessory muscle use Comments: Wheezes right mid lobe greater than left - Routine Cardiovascular Exam Absent: RRR Comments: Irregular rate and rhythm distant heart sounds - Routine Abdominal Exam Present: soft. Absent: tenderness - Routine Extremities Exam Absent: cyanosis - Routine Skin Exam Present: dry. Absent: cyanosis - Routine Neurological Exam Present: alert, oriented X3 - Routine Psychiatric Exam Present: normal affect Results 07/27/17 04:08 07/27/17 04:08 CBC 07/27/17 Range/Units 04:08 WBC 10.9 (4.5-11.0) T/MM3 RBC 3.50 L (4.00-5.20) M/MM3 Hgb 10.5 L (12-16) GM/DL Hct 32.5 L (36-46) % Plt Count 238 (130-400) T/MM3 Neut # (Auto) 7.9 H (1.8-7.7) T/MM3 Lymph # (Auto) 1.7 (1-4.8) T/MM3 Peach # (Auto) 1.2 H (0-0.8) T/MM3 Eos # (Auto) 0.1 (0-0.5) T/MM3 Baso # (Auto) 0.0 (0-0.2) T/MM3 Comprehensive Metabolic Panel 07/27/17 Range/Units 04:08 Sodium 136 (134-144) MEQ/L Potassium 3.6 (3.6-5) MEQ/L Chloride 99 (98-107) MEQ/L Carbon Dioxide 25 (22-30) MEQ/L BUN 33.0 H (7-17) MG/DL Creatinine 1.6 H D (0.7-1.2) mg/dL Glucose 121 H (65-110) MG/DL Calcium 9.6 D (8.4-10.2) MG/DL Intake and Output 07/26/17 07/27/17 07/27/17 22:59 06:59 14:59 Intake Total 450 / 450 Output Total 1200 / 1200 400 / 400 125 / 125 Balance -750 / -750 -400 / -400 -125 / -125 Intake: IV 50 / 50 Ceftriaxone 1 g In Ns 50 ml @ 50 / 50 100 mls/hr IV Q24H [facility] Rx#: [id number] Oral 400 / 400 Output: Urine 1200 / 1200 400 / 400 125 / 125 Other: Urine Appearance Clear Cloudy Clear Urine Color Yellow Dark Yellow Yellow Urine Odor Normal Normal Normal Stool Color Brown Brown Stool Consistency Soft Soft Formed Size of Bowel Movement Smear Small # Voids 2 2 1 # Incontinent Voids 1 # Bowel Movements 1 Weight 84.1 kg Patient Weight 07/28/17 06:59 Weight 84.1 kg - Imaging and Cardiology Echo: pending - EKG Interpretation EKG: no acute changes (atrial fibrillation) Assessment and Plan - Assessment and Plan (1) CAP (community acquired pneumonia) Current visit: Yes Status: Acute (2) Atrial fibrillation with RVR Current visit: Yes Status: Chronic (3) Pulmonary hypertension Current visit: Yes Status: Acute (4) Diastolic congestive heart failure Current visit: Yes Status: Acute (5) CAD (coronary artery disease) Current visit: Yes Status: Acute - Assessment and Plan 07/24/17: CAP and hypoxia per attending. BNP elevated, CHF exacerbation mild by clinical exam; likely acute respiratory illness induced. Home lasix restarted 40mg bid, pt had one time dose of lasix 20mg IV. DC coreg 25mg bid. change Diltiazem to 180mg daily, initiate metoprolol succinate 200mg daily. Continue Eliquis 2.5mg bid, metoprolol and diltiazem for rate control. Continue home Zocor, statin. 07/25/17: Pt stable today, HR hanging around 80-120's. Will increase diltiazem to bid to for improved rate control, diltiazem cd 180mg bid. Continue metoprolol succinate 200mg daily, changed from home coreg for improved rate effect of BB therapy. Home Eliquis 2.5mg bid, low dose due to renal function impairment. Home Zocor. Discussed additional diureses with Dr. Fair, I think the patient is mildly fluid volume up, diuresis would improve her respiratory status and aid in rate control. 07/26/17: Tele afib, rate improved today, in the 80's at rest, up to 100's with activity. Chest xray this AM look like mild increased vascular congestion, weight up and I &O's reflect positive fluid gain since admission. Repeat BNP is up from 3300 to 5300. DC PO lasix, IV lasix 80mg bid. PO potassium 20meq TID Continue Metoprolol succinate 200mg daily, Diltiazem 180mg bid & Eliquis for AFib management. Obtain ECHO in AM to eval EF and right heart status. Last ECHO in office 08/2016 , EF 60%, diastolic dysfunction, no significant valvular dysfunction, IVC dilated. Continue home Eliquis 2.5mg bid 07/27/17 F/U Acute Diastolic heart failure due to atrial fibrillation a patient with pulmonary compromise with CAP and COPD/Acute hypoxic respiratory failure EKG afib rate controlled 80 bpm Medications reviewed Continue Eliquis Creatinine improved with IV Lasix BNP not performed today Yesterday BMP high Continue Potassium supplement and change to daily dosing - monitor lab closely Will give IV Bumex 2mg today and tomorrow and monitor response Then consider changing to oral lasix. Clinically patient does not have significant signs of CHF Hospital Course Summary Disclaimer: The visit summary below is not to be considered part of the above Progress Note. Hospital Course: 07/24/17 Mrs. Rosas was admitted overnight with increasing dyspnea and pneumonia with treatment initiated as an outpatient. Oxygen saturation in the 80s at home prompting ER evaluation and subsequent admission. Continue ceftriaxone/azithromycin Wean oxygen as tolerated to maintain sats >90 Breathing treatments, RT consult Continue CPAP with sleep Follow sputum culture Continue home medications (hold parameters and reduced doses of some meds due to acute illness) Monitor on telemetry for atrial fibrillation; rate control poor-Dr. Bridges consulted. Diabetic diet, sliding scale insulin (on no basal at home), glucose monitoring 07/25/17 Continue antibiotics-day 3 ceftriaxone/azithromycin; my review of chest x-ray does not reveal infiltrate. Repeat chest x-ray in a.m., sputum culture pending. Persistent leukocytosis with fever overnight-blood cultures to be drawn if recurs. Continue supplemental oxygen as needed. Continue diuresis. Heart rate poorly controlled overnight with rates 110-150 by review of vital signs and telemetry strips. Diltiazem added to metoprolol by cardiology this morning and currently heart rate ranging upper 90s-110. Patient indicates digoxin recently discontinued. Renal function stable. Hospital Course Summary Disclaimer: The visit summary below is not to be considered part of the above Progress Note. Hospital Course: 07/24/17 Mrs. Rosas was admitted overnight with increasing dyspnea and pneumonia with treatment initiated as an outpatient. Oxygen saturation in the 80s at home prompting ER evaluation and subsequent admission. Continue ceftriaxone/azithromycin Wean oxygen as tolerated to maintain sats >90 Breathing treatments, RT consult Continue CPAP with sleep Follow sputum culture Continue home medications (hold parameters and reduced doses of some meds due to acute illness) Monitor on telemetry for atrial fibrillation; rate control poor-Dr. Bridges consulted. Diabetic diet, sliding scale insulin (on no basal at home), glucose monitoring 07/25/17 Continue antibiotics-day 3 ceftriaxone/azithromycin; my review of chest x-ray does not reveal infiltrate. Repeat chest x-ray in a.m., sputum culture pending. Persistent leukocytosis with fever overnight-blood cultures to be drawn if recurs. Continue supplemental oxygen as needed. Continue diuresis. Heart rate poorly controlled overnight with rates 110-150 by review of vital signs and telemetry strips. Diltiazem added to metoprolol by cardiology this morning and currently heart rate ranging upper 90s-110. Patient indicates digoxin recently discontinued. Renal function stable.
--- NOTE | 2017-07-27 13:35 | Progress Note ---
- Date 07/27/17 Subjective: Patient is seen sitting in her room after lunch. She reports she is feeling better. Has been coughing quite a bit. Hasn't done much walking because she gets so short of air with exertion. She continues on oxygen but is not on home O2. Appetite is "so-so," no nausea or vomiting, no chest pain. Swelling in extremities improved today. Objective Vital signs: Temperature 97.1 F 07/27/17 11:37 Pulse Rate 95 07/27/17 11:37 Respiratory Rate 20 07/27/17 11:37 Blood Pressure 131/73 07/27/17 11:37 Pulse Oximetry 96 07/27/17 11:37 Rhythm: Atrial Fibrillation with Normal Ventricular Rate Height/Weight/BMI: Height 1.5 m Weight 84.1 kg Body Mass Index 36.9 - Constitutional Present: no acute distress, well nourished, well developed - Routine HEENT Exam Head: Present: normocephalic, atraumatic - Routine Respiratory Exam Present: decreased breath sounds, CTA bilaterally, distant breath sounds, diminished air movement. Absent: wheezes - Routine Cardiovascular Exam Present: no murmur, irregularly irregular - Routine Abdominal Exam Present: soft, non distended, non tender - Routine Extremities Exam Present: edema (tr b/l LE's), normal capillary refill - Routine Skin Exam Present: dry, warm - Routine Neurological Exam Present: alert, oriented X3 - Routine Lymphatic Exam Lymphatic: Absent: adenopathy - Routine Psychiatric Exam Present: normal affect, cooperative Results - Labs CBC & Chem 7: 07/27/17 04:08 07/27/17 04:08 Microbiology Results: Microbiology 07/23/17 22:47 Sputum, Expectorated Gram Stain - Final 07/23/17 22:47 Sputum, Expectorated Sputum Culture - Preliminary Assessment and Plan (1) Congestive heart failure Problem details: Diastolic Current visit: Yes Status: Acute (2) CAP (community acquired pneumonia) Current visit: Yes Status: Acute (3) Atrial fibrillation with RVR Current visit: Yes Status: Chronic Assessment and Plan: Assessment: Acute hypoxic respiratory failure Sepsis-present on admission (leukocytosis, tachypnea, tachycardia) Pneumonia/bronchitis-acute Atrial Fibrillation with RVR - on Eliquis for chronic anticoagulation Diastolic heart failure with exacerbation CKD-Stage IV KIRSTIN-CPAP with sleep HTN Dyslipidemia Osteoarthritis Depression DM2-insulin dependent Obesity Plan: Continue antibiotics-day #5 ceftriaxone/azithromycin Continue supplemental oxygen as needed - down to 1 L (No previous home O2 use.) Remains in atrial fibrillation (chronic) with improved rate control on metoprolol and diltiazem. Echo results pending. Work with PT/OT. Hope to DC home tomorrow if stable. Per cardiology: Continue Potassium supplement and change to daily dosing - monitor lab closely Will give IV Bumex 2mg today and tomorrow and monitor response DVT Prophylaxis: Eliquis Resuscitation Status: Full Code - Physician Narrative Physician: Anna Fair MD Narrative: Date: 07/27/17 Time: 1540 I have independently evaluated and examined this patient. I reviewed the chart, the patient's history, and the BAR[employer] LEVELER/PA's documented findings as above. We discussed and formulated the assessment and plan as above with additions as below: Mrs. Rosas reports increased urination yesterday after diuretic dose was increased and that her breathing and cough are partially improved today. She feels weaker and somewhat unsteady ambulating and is concerned she may need a walker. The patient is alert, respirations are nonlabored and there are crackles at the bases bilaterally. Cardiac rhythm is irregular and review of telemetry strips demonstrates persistent atrial fibrillation with occasional PACs/PVCs Physical therapy to be reconsulted, creatinine 1.6 today-still slightly below baseline. Complete antibiotics today; continue diuresis. Discussed with cardiology. Hospital Course Summary Disclaimer: The visit summary below is not to be considered part of the above Progress Note. Hospital Course: 07/24/17 Mrs. Rosas was admitted overnight with increasing dyspnea and pneumonia with treatment initiated as an outpatient. Oxygen saturation in the 80s at home prompting ER evaluation and subsequent admission. Continue ceftriaxone/azithromycin Wean oxygen as tolerated to maintain sats >90 Breathing treatments, RT consult Continue CPAP with sleep Follow sputum culture Continue home medications (hold parameters and reduced doses of some meds due to acute illness) Monitor on telemetry for atrial fibrillation; rate control poor-Dr. Bridges consulted. Diabetic diet, sliding scale insulin (on no basal at home), glucose monitoring 07/25/17 Continue antibiotics-day 3 ceftriaxone/azithromycin; my review of chest x-ray does not reveal infiltrate. Repeat chest x-ray in a.m., sputum culture pending. Persistent leukocytosis with fever overnight-blood cultures to be drawn if recurs. Continue supplemental oxygen as needed. Continue diuresis. Heart rate poorly controlled overnight with rates 110-150 by review of vital signs and telemetry strips. Diltiazem added to metoprolol by cardiology this morning and currently heart rate ranging upper 90s-110. Patient indicates digoxin recently discontinued. Renal function stable. 07/26/17 Continue antibiotics-day 4 ceftriaxone/azithromycin; my review of chest x-ray does not reveal infiltrate again today but there is increased heart failure. Cardiology increasing diuretics-converted to IV administration. White count normalizing, no recurrent fever. Slept poorly due to persistent cough and not using CPAP due to ongoing cough. Add Tussionex at night for symptom management Remains in atrial fibrillation (chronic) with improved rate control on metoprolol and diltiazem. 07/27/17 Continue antibiotics-day #5 ceftriaxone/azithromycin Continue supplemental oxygen as needed - down to 1 L (No previous home O2 use.) Remains in atrial fibrillation (chronic) with improved rate control on metoprolol and diltiazem. Echo results pending. Work with PT/OT. Hope to DC home tomorrow if stable. Per cardiology: Continue Potassium supplement and change to daily dosing - monitor lab closely Will give IV Bumex 2mg today and tomorrow and monitor response
[2017-07-27] MEDS ORDERED: FUROSEMIDE 40 MG TABLET PO SCH (17:00)
[2017-07-27] MEDS: BENZONATATE 200 MG CAPSULE PO PRN ×2 (17:21→21:41)
[2017-07-27] MEDS: INSULIN ASPART 100unit/ml INJECTION SQ PRN (17:22)
[2017-07-27] MEDS: CEFTRIAXONE 1 G in NS 50 ML IV SCH (21:06)
[2017-07-27] MEDS: SALINE FLUSH 10ml SYRINGE IVF PRN (21:13)
[2017-07-27] MEDS: MELATONIN 1 MG TABLET PO SCH (21:14)
[2017-07-27] MEDS: HYDROCODONE/CHLORPHENIRAMINE ER ORAL LIQ 5ml PO SCH (21:15)
[2017-07-28] MEDS: ALBUTEROL/IPRATROPIUM 2.5mg-0.5mg/3ml NEB AEROSOL SCH ×2 (07:31→19:51)
[2017-07-28] MEDS: BUSPIRONE 10 MG TABLET PO SCH ×2 (08:09→13:21)
[2017-07-28] MEDS: HYDRALAZINE 25 MG TABLET PO SCH ×3 (08:09→18:04)
[2017-07-28] MEDS: CALCITRIOL 0.25 MCG CAPSULE PO SCH (08:10)
[2017-07-28] MEDS: APIXABAN 2.5 MG TABLET PO SCH ×2 (08:10→21:49)
[2017-07-28] MEDS: ALLOPURINOL 100 MG TABLET PO SCH ×2 (08:10→21:49)
[2017-07-28] MEDS: METOPROLOL SUCCINATE 200 MG PO SCH (08:11)
[2017-07-28] MEDS: SERTRALINE 100 MG TABLET PO SCH (08:11)
--- NOTE | 2017-07-28 11:55 | Cardiology Progress Note ---
<Jo Cooper Amilcar - Last Filed: 07/28/17 15:47> Subjective Principal diagnosis: Chronic Atrial Fibrillation Interval history: Patient continues to be SOA but improving. She denies Chest pain Exam Vital signs: Temperature 96.5 F L 07/28/17 07:25 Pulse Rate 94 07/28/17 07:25 Respiratory Rate 16 07/28/17 07:32 Blood Pressure 126/71 07/28/17 07:25 Pulse Oximetry 93 07/28/17 11:09 Inpatient Medications: Generic Name Dose Route Start Last Admin Trade Name Freq PRN Reason Stop Dose Admin Hydrocodone Bitart/Acetaminophen 1 tab 07/23/17 23:06 07/26/17 22:16 [place] 5/325 PO 1 tab Q6H PRN Administration Pain Albuterol/Ipratropium 3 ml 07/24/17 07:00 07/28/17 07:31 Duoneb AEROSOL 3 ml RTBID KELVIN Administration Albuterol/Ipratropium 3 ml 07/24/17 01:27 Duoneb AEROSOL PRN PRN Allopurinol 100 mg 07/25/17 21:00 07/28/17 08:10 Zyloprim PO 100 mg BID KELVIN Administration Apixaban 2.5 mg 07/24/17 09:38 07/28/17 08:10 Eliquis PO 2.5 mg BID KELVIN Administration Benzonatate 200 mg 07/24/17 01:34 07/27/17 21:41 Tessalon Perles PO 200 mg TID PRN Administration Cough Bumetanide 2 mg 07/28/17 10:41 07/28/17 11:15 Bumex 1 Mg/4 Ml Inj. IVP 2 mg DAILY KELVIN Administration Buspirone HCl 10 mg 07/26/17 08:00 07/28/17 08:09 Buspar PO 10 mg 0800,1200 KELVIN Administration Calcitriol 0.5 mcg 07/26/17 09:00 07/28/17 08:10 Rocaltrol PO 0.5 mcg DAILY KELVIN Administration Chlorphenir/Hydrocodone Polistirex 5 ml 07/26/17 21:00 07/27/17 21:15 Tussionex PO 5 ml HS KELVIN Administration Diltiazem HCl 180 mg 07/25/17 21:00 07/28/17 08:10 Cardizem Cd 180 Mg PO 180 mg BID KELVIN Administration Glucose 37.5 gm 07/24/17 09:23 Glutose 15 PO PRN PRN Hypoglycemia Hydralazine HCl 50 mg 07/24/17 12:00 07/28/17 08:09 Apresoline PO 50 mg TIDWM KELVIN Administration Insulin Aspart 1 - 5 unit 07/24/17 09:23 07/27/17 17:22 Novolog SQ 1 unit SS PRN Administration Hyperglycemia Protocol Melatonin 3 mg 07/25/17 21:00 07/27/17 21:14 Melatonin PO 3 mg HS KELVIN Administration Metoprolol Succinate 200 mg 07/24/17 15:45 07/28/17 08:11 Toprol Xl PO 200 mg DAILY KELVIN Administration Ondansetron HCl 4 mg 07/23/17 23:06 Zofran IVP Q6H PRN Nausea &/or vomiting Potassium Chloride 40 meq 07/28/17 08:00 07/28/17 08:10 K-Dur 20 Meq Tablet PO 40 meq WB KELVIN Administration Sertraline HCl 100 mg 07/24/17 09:15 07/28/17 08:11 Zoloft PO 100 mg DAILY KELVIN Administration Sodium Chloride 10 - 80 ml 07/23/17 20:20 07/27/17 21:13 Iv Flush IVF 10 ml PRN PRN Administration Flushing Discontinued Medications Generic Name Dose Route Start Last Admin Trade Name Freq PRN Reason Stop Dose Admin Albuterol/Ipratropium 3 ml 07/23/17 20:20 07/23/17 20:41 Duoneb AEROSOL 07/23/17 20:21 3 ml O ONE Administration Albuterol/Ipratropium 3 ml 07/24/17 01:16 07/24/17 01:19 Duoneb AEROSOL 3 ml RTBID PRN Administration Apixaban 2.5 mg 07/24/17 21:00 Eliquis PO BID KELVIN Azithromycin 250 mg 07/24/17 10:00 07/27/17 05:59 Zithromax PO 07/27/17 06:31 250 mg ACB KELVIN Administration Bumetanide 2 mg 07/28/17 15:00 Bumex 1 Mg/4 Ml Inj. IVP DAILY KELVIN Bupropion HCl 150 mg 07/24/17 09:15 07/24/17 10:25 Wellbutrin Xl PO 150 mg DAILY KELVIN Administration Buspirone HCl 10 mg 07/24/17 21:00 07/25/17 21:12 Buspar PO 10 mg BID KELVIN Administration Carvedilol 25 mg 07/24/17 09:00 07/24/17 08:12 Coreg PO 25 mg BID KELVIN Administration Carvedilol 25 mg 07/24/17 17:30 Coreg PO BIDWM KELVIN Diltiazem HCl 180 mg 07/24/17 09:00 07/24/17 08:12 Cardizem Cd 180 Mg PO 180 mg BID KELVIN Administration Diltiazem HCl 180 mg 07/25/17 09:00 07/25/17 08:36 Cardizem Cd 180 Mg PO 180 mg DAILY KELVIN Administration Furosemide 20 mg 07/24/17 00:33 07/24/17 01:51 Lasix 20 Mg/2 Ml IVP 07/24/17 00:34 20 mg ONCE ONE Administration Furosemide 40 mg 07/24/17 10:00 07/25/17 08:35 Lasix 40 Mg Tab PO 40 mg 0900,1700 KELVIN Administration Furosemide 80 mg 07/26/17 08:00 07/26/17 08:11 Lasix 40 Mg Tab PO 80 mg DAILY@0800 KELVIN Administration Furosemide 40 mg 07/26/17 12:00 Lasix 40 Mg Tab PO NOON KELVIN Furosemide 80 mg 07/26/17 17:00 07/27/17 08:35 Lasix 100 Mg/10 Ml IVP 80 mg [id number] KELVIN Administration Furosemide 40 mg 07/27/17 17:00 Lasix 40 Mg Tab PO 0900,1700 KELVIN Sodium Chloride 1,000 mls @ 150 mls/hr 07/23/17 22:00 07/25/17 21:55 Normal Saline IV 07/24/17 00:10 Infused .Q6H40M KELVIN Infusion Ceftriaxone Sodium 1 gm/ 100 mls @ 200 mls/hr 07/23/17 22:32 07/23/17 23:15 Sodium Chloride IV 07/23/17 23:01 Infused O ONE Infusion Ceftriaxone Sodium 1 g/ Sodium 50 mls @ 100 mls/hr 07/24/17 20:00 07/27/17 21 :36 Chloride IV 07/28/17 01:00 Infused Q24H KELVIN Infusion Potassium Chloride 20 meq 07/24/17 17:30 K-Dur 20 Meq Tablet PO BIDWM KELVIN Potassium Chloride 20 meq 07/24/17 09:45 07/26/17 08:14 K-Dur 20 Meq Tablet PO 20 meq BIDWM KELVIN Administration Potassium Chloride 40 meq 07/26/17 17:30 07/27/17 08:33 K-Dur 20 Meq Tablet PO 40 meq BIDWM KELVIN Administration - Constitutional no acute distress - Routine HEENT Exam Head: Present: normocephalic, atraumatic Eye: Present: EOMI - Routine Neck Exam Absent: JVD - Routine Chest/Breast/Axilla Exam Chest wall: Absent: tenderness - Routine Respiratory Exam Present: decreased breath sounds. Absent: accessory muscle use - Routine Cardiovascular Exam Present: irregular rhythm Comments: distant heart sounds - Routine Abdominal Exam Present: soft - Routine Extremities Exam Absent: cyanosis - Routine Skin Exam Absent: cyanosis - Routine Neurological Exam Present: alert, oriented X3 - Routine Psychiatric Exam Present: normal affect Results 07/28/17 03:51 07/28/17 03:51 CBC 07/28/17 Range/Units 03:51 WBC 10.5 (4.5-11.0) T/MM3 RBC 3.34 L (4.00-5.20) M/MM3 Hgb 10.2 L (12-16) GM/DL Hct 31.1 L (36-46) % Plt Count 243 (130-400) T/MM3 Neut # (Auto) Not performed Lymph # (Auto) Not performed Crane # (Auto) Not performed Eos # (Auto) Not performed Baso # (Auto) Not performed Comprehensive Metabolic Panel 07/28/17 Range/Units 03:51 Sodium 137 (134-144) MEQ/L Potassium 3.6 (3.6-5) MEQ/L Chloride 99 (98-107) MEQ/L Carbon Dioxide 27 (22-30) MEQ/L BUN 34.0 H (7-17) MG/DL Creatinine 1.4 H D (0.7-1.2) mg/dL Glucose 108 (65-110) MG/DL Calcium 9.3 (8.4-10.2) MG/DL Intake and Output 07/27/17 07/28/17 07/28/17 22:59 06:59 14:59 Intake Total 290 / 290 1200 / 1200 240 / 240 Output Total 1145 / 1145 200 / 200 Balance -855 / -855 1000 / 1000 240 / 240 Intake: IV 50 / 50 Ceftriaxone 1 g In Ns 50 ml @ 50 / 50 100 mls/hr IV Q24H [facility] Rx#: [id number] Oral 240 / 240 1200 / 1200 240 / 240 Output: Urine 1145 / 1145 200 / 200 Other: Urine Appearance Clear Clear Urine Color Yellow Yellow Urine Odor Normal Normal Stool Color Brown Stool Consistency Soft Formed Loose Size of Bowel Movement Moderate # Voids 1 1 # Incontinent Voids 2 Weight 84 kg Patient Weight 07/29/17 06:59 Weight 84 kg Assessment and Plan - Assessment and Plan (1) CAP (community acquired pneumonia) Current visit: Yes Status: Acute (2) Atrial fibrillation with RVR Current visit: Yes Status: Chronic (3) Pulmonary hypertension Current visit: Yes Status: Acute (4) CAD (coronary artery disease) Current visit: Yes Status: Acute (5) Acute systolic (congestive) heart failure Current visit: Yes Status: Acute - Assessment and Plan 07/24/17: CAP and hypoxia per attending. BNP elevated, CHF exacerbation mild by clinical exam; likely acute respiratory illness induced. Home lasix restarted 40mg bid, pt had one time dose of lasix 20mg IV. DC coreg 25mg bid. change Diltiazem to 180mg daily, initiate metoprolol succinate 200mg daily. Continue Eliquis 2.5mg bid, metoprolol and diltiazem for rate control. Continue home Zocor, statin. 07/25/17: Pt stable today, HR hanging around 80-120's. Will increase diltiazem to bid to for improved rate control, diltiazem cd 180mg bid. Continue metoprolol succinate 200mg daily, changed from home coreg for improved rate effect of BB therapy. Home Eliquis 2.5mg bid, low dose due to renal function impairment. Home Zocor. Discussed additional diureses with Dr. Fair, I think the patient is mildly fluid volume up, diuresis would improve her respiratory status and aid in rate control. 07/26/17: Tele afib, rate improved today, in the 80's at rest, up to 100's with activity. Chest xray this AM look like mild increased vascular congestion, weight up and I &O's reflect positive fluid gain since admission. Repeat BNP is up from 3300 to 5300. DC PO lasix, IV lasix 80mg bid. PO potassium 20meq TID Continue Metoprolol succinate 200mg daily, Diltiazem 180mg bid & Eliquis for AFib management. Obtain ECHO in AM to eval EF and right heart status. Last ECHO in office 08/2016 , EF 60%, diastolic dysfunction, no significant valvular dysfunction, IVC dilated. Continue home Eliquis 2.5mg bid 07/27/17 F/U Acute Diastolic heart failure due to atrial fibrillation a patient with pulmonary compromise with CAP and COPD/Acute hypoxic respiratory failure EKG afib rate controlled 80 bpm Medications reviewed Continue Eliquis Creatinine improved with IV Lasix BNP not performed today Yesterday BNP high Continue Potassium supplement and change to daily dosing - monitor lab closely Will give IV Bumex 2mg today and tomorrow and monitor response Then consider changing to oral lasix. Clinically patient does not have significant signs of CHF 07/28/17 Clinically patient improved Will change IV Bumex to Bumex 2mg po BID and start Entresto 24/26mg daily as patient has a new diagnosis of systolic heart failure EF now 35% We will continue her Metoprolol and Cardizem for heart rate control - Dr. Bridges ok with this combination Patient can likely be discharged in 1 to 2 days depending upon how she tolerates her new Entresto We will try to wean the oral Bumex down to possibly 1mg po daily upon discharge Hospital Course Summary Disclaimer: The visit summary below is not to be considered part of the above Progress Note. Hospital Course: 07/24/17 Mrs. Rosas was admitted overnight with increasing dyspnea and pneumonia with treatment initiated as an outpatient. Oxygen saturation in the 80s at home prompting ER evaluation and subsequent admission. Continue ceftriaxone/azithromycin Wean oxygen as tolerated to maintain sats >90 Breathing treatments, RT consult Continue CPAP with sleep Follow sputum culture Continue home medications (hold parameters and reduced doses of some meds due to acute illness) Monitor on telemetry for atrial fibrillation; rate control poor-Dr. Bridges consulted. Diabetic diet, sliding scale insulin (on no basal at home), glucose monitoring 07/25/17 Continue antibiotics-day 3 ceftriaxone/azithromycin; my review of chest x-ray does not reveal infiltrate. Repeat chest x-ray in a.m., sputum culture pending. Persistent leukocytosis with fever overnight-blood cultures to be drawn if recurs. Continue supplemental oxygen as needed. Continue diuresis. Heart rate poorly controlled overnight with rates 110-150 by review of vital signs and telemetry strips. Diltiazem added to metoprolol by cardiology this morning and currently heart rate ranging upper 90s-110. Patient indicates digoxin recently discontinued. Renal function stable. 07/26/17 Continue antibiotics-day 4 ceftriaxone/azithromycin; my review of chest x-ray does not reveal infiltrate again today but there is increased heart failure. Cardiology increasing diuretics-converted to IV administration. White count normalizing, no recurrent fever. Slept poorly due to persistent cough and not using CPAP due to ongoing cough. Add Tussionex at night for symptom management Remains in atrial fibrillation (chronic) with improved rate control on metoprolol and diltiazem. 07/27/17 Continue antibiotics-day #5 ceftriaxone/azithromycin Continue supplemental oxygen as needed - down to 1 L (No previous home O2 use.) Remains in atrial fibrillation (chronic) with improved rate control on metoprolol and diltiazem. Echo results pending. Work with PT/OT. Hope to DC home tomorrow if stable. Per cardiology: Continue Potassium supplement and change to daily dosing - monitor lab closely Will give IV Bumex 2mg today and tomorrow and monitor response Hospital Course Summary Disclaimer: The visit summary below is not to be considered part of the above Progress Note. Hospital Course: 07/24/17 Mrs. Rosas was admitted overnight with increasing dyspnea and pneumonia with treatment initiated as an outpatient. Oxygen saturation in the 80s at home prompting ER evaluation and subsequent admission. Continue ceftriaxone/azithromycin Wean oxygen as tolerated to maintain sats >90 Breathing treatments, RT consult Continue CPAP with sleep Follow sputum culture Continue home medications (hold parameters and reduced doses of some meds due to acute illness) Monitor on telemetry for atrial fibrillation; rate control poor-Dr. Bridges consulted. Diabetic diet, sliding scale insulin (on no basal at home), glucose monitoring 07/25/17 Continue antibiotics-day 3 ceftriaxone/azithromycin; my review of chest x-ray does not reveal infiltrate. Repeat chest x-ray in a.m., sputum culture pending. Persistent leukocytosis with fever overnight-blood cultures to be drawn if recurs. Continue supplemental oxygen as needed. Continue diuresis. Heart rate poorly controlled overnight with rates 110-150 by review of vital signs and telemetry strips. Diltiazem added to metoprolol by cardiology this morning and currently heart rate ranging upper 90s-110. Patient indicates digoxin recently discontinued. Renal function stable. 07/26/17 Continue antibiotics-day 4 ceftriaxone/azithromycin; my review of chest x-ray does not reveal infiltrate again today but there is increased heart failure. Cardiology increasing diuretics-converted to IV administration. White count normalizing, no recurrent fever. Slept poorly due to persistent cough and not using CPAP due to ongoing cough. Add Tussionex at night for symptom management Remains in atrial fibrillation (chronic) with improved rate control on metoprolol and diltiazem. 07/27/17 Continue antibiotics-day #5 ceftriaxone/azithromycin Continue supplemental oxygen as needed - down to 1 L (No previous home O2 use.) Remains in atrial fibrillation (chronic) with improved rate control on metoprolol and diltiazem. Echo results pending. Work with PT/OT. Hope to DC home tomorrow if stable. Per cardiology: Continue Potassium supplement and change to daily dosing - monitor lab closely Will give IV Bumex 2mg today and tomorrow and monitor response <Fermin Bridges - Last Filed: 07/29/17 09:11> Exam Vital signs: Temperature 97.3 F 07/29/17 07:44 Pulse Rate 91 07/29/17 07:44 Respiratory Rate 16 07/29/17 07:44 Blood Pressure 125/69 07/29/17 07:44 Pulse Oximetry 95 07/29/17 07:44 Inpatient Medications: Generic Name Dose Route Start Last Admin Trade Name Freq PRN Reason Stop Dose Admin Hydrocodone Bitart/Acetaminophen 1 tab 07/23/17 23:06 07/29/17 08:35 [place] 5/325 PO 1 tab Q6H PRN Administration Pain Albuterol/Ipratropium 3 ml 07/24/17 07:00 07/29/17 07:20 Duoneb AEROSOL 3 ml RTBID KELVIN Administration Albuterol/Ipratropium 3 ml 07/24/17 01:27 Duoneb AEROSOL PRN PRN Allopurinol 100 mg 07/25/17 21:00 07/29/17 08:25 Zyloprim PO 100 mg BID KELVIN Administration Apixaban 2.5 mg 07/24/17 09:38 07/29/17 08:23 Eliquis PO 2.5 mg BID KELVIN Administration Benzonatate 200 mg 07/24/17 01:34 07/29/17 08:22 Tessalon Perles PO 200 mg TID PRN Administration Cough Bumetanide 2 mg 07/28/17 10:41 07/29/17 08:30 Bumex 1 Mg/4 Ml Inj. IVP Not Given DAILY KELVIN Bumetanide 2 mg 07/28/17 17:30 07/29/17 08:23 Bumex 1 Mg Tab PO 2 mg BIDBS KELVIN Administration Buspirone HCl 10 mg 07/26/17 08:00 07/29/17 08:24 Buspar PO 10 mg 0800,1200 KELVIN Administration Calcitriol 0.5 mcg 07/26/17 09:00 07/29/17 08:25 Rocaltrol PO 0.5 mcg DAILY KELVIN Administration Chlorphenir/Hydrocodone Polistirex 5 ml 07/26/17 21:00 07/28/17 21:49 Tussionex PO 5 ml HS KELVIN Administration Diltiazem HCl 180 mg 07/25/17 21:00 07/29/17 08:24 Cardizem Cd 180 Mg PO 180 mg BID KELVIN Administration Glucose 37.5 gm 07/24/17 09:23 Glutose 15 PO PRN PRN Hypoglycemia Hydralazine HCl 50 mg 07/24/17 12:00 07/29/17 08:24 Apresoline PO 50 mg TIDWM KELVIN Administration Insulin Aspart 1 - 5 unit 07/24/17 09:23 07/27/17 17:22 Novolog SQ 1 unit SS PRN Administration Hyperglycemia Protocol Melatonin 3 mg 07/25/17 21:00 07/28/17 21:50 Melatonin PO 3 mg HS KELVIN Administration Metoprolol Succinate 200 mg 07/24/17 15:45 07/29/17 08:31 Toprol Xl PO 200 mg DAILY KELVIN Administration Ondansetron HCl 4 mg 07/23/17 23:06 Zofran IVP Q6H PRN Nausea &/or vomiting Potassium Chloride 40 meq 07/28/17 08:00 07/29/17 08:24 K-Dur 20 Meq Tablet PO 40 meq WB KELVIN Administration Sacubitril/Valsartan 1 tab 07/28/17 21:00 07/29/17 08:23 Entresto 24/26mg PO 1 tab BID KELVIN Administration Sertraline HCl 100 mg 07/24/17 09:15 07/29/17 08:24 Zoloft PO 100 mg DAILY KELVIN Administration Sodium Chloride 10 - 80 ml 07/23/17 20:20 07/27/17 21:13 Iv Flush IVF 10 ml PRN PRN Administration Flushing Discontinued Medications Generic Name Dose Route Start Last Admin Trade Name Freq PRN Reason Stop Dose Admin Albuterol/Ipratropium 3 ml 07/23/17 20:20 07/23/17 20:41 Duoneb AEROSOL 07/23/17 20:21 3 ml O ONE Administration Albuterol/Ipratropium 3 ml 07/24/17 01:16 07/24/17 01:19 Duoneb AEROSOL 3 ml RTBID PRN Administration Apixaban 2.5 mg 07/24/17 21:00 Eliquis PO BID KELVIN Azithromycin 250 mg 07/24/17 10:00 07/27/17 05:59 Zithromax PO 07/27/17 06:31 250 mg ACB KELVIN Administration Bumetanide 2 mg 07/28/17 15:00 Bumex 1 Mg/4 Ml Inj. IVP DAILY KELVIN Bupropion HCl 150 mg 07/24/17 09:15 07/24/17 10:25 Wellbutrin Xl PO 150 mg DAILY KELVIN Administration Buspirone HCl 10 mg 07/24/17 21:00 07/25/17 21:12 Buspar PO 10 mg BID KELVIN Administration Carvedilol 25 mg 07/24/17 09:00 07/24/17 08:12 Coreg PO 25 mg BID KELVIN Administration Carvedilol 25 mg 07/24/17 17:30 Coreg PO BIDWM KELVIN Diltiazem HCl 180 mg 07/24/17 09:00 07/24/17 08:12 Cardizem Cd 180 Mg PO 180 mg BID KELVIN Administration Diltiazem HCl 180 mg 07/25/17 09:00 07/25/17 08:36 Cardizem Cd 180 Mg PO 180 mg DAILY KELVIN Administration Furosemide 20 mg 07/24/17 00:33 07/24/17 01:51 Lasix 20 Mg/2 Ml IVP 07/24/17 00:34 20 mg ONCE ONE Administration Furosemide 40 mg 07/24/17 10:00 07/25/17 08:35 Lasix 40 Mg Tab PO 40 mg 0900,1700 KELVIN Administration Furosemide 80 mg 07/26/17 08:00 07/26/17 08:11 Lasix 40 Mg Tab PO 80 mg DAILY@0800 KELVIN Administration Furosemide 40 mg 07/26/17 12:00 Lasix 40 Mg Tab PO NOON KELVIN Furosemide 80 mg 07/26/17 17:00 07/27/17 08:35 Lasix 100 Mg/10 Ml IVP 80 mg [id number] KELVIN Administration Furosemide 40 mg 07/27/17 17:00 Lasix 40 Mg Tab PO 0900,1700 [facility] Sodium Chloride 1,000 mls @ 150 mls/hr 07/23/17 22:00 07/25/17 21:55 Normal Saline IV 07/24/17 00:10 Infused .Q6H40M KELVIN Infusion Ceftriaxone Sodium 1 gm/ 100 mls @ 200 mls/hr 07/23/17 22:32 07/23/17 23:15 Sodium Chloride IV 07/23/17 23:01 Infused O ONE Infusion Ceftriaxone Sodium 1 g/ Sodium 50 mls @ 100 mls/hr 07/24/17 20:00 07/27/17 21 :36 Chloride IV 07/28/17 01:00 Infused Q24H KELVIN Infusion Potassium Chloride 20 meq 07/24/17 17:30 K-Dur 20 Meq Tablet PO BIDWM KELVIN Potassium Chloride 20 meq 07/24/17 09:45 07/26/17 08:14 K-Dur 20 Meq Tablet PO 20 meq BIDWM KELVIN Administration Potassium Chloride 40 meq 07/26/17 17:30 07/27/17 08:33 K-Dur 20 Meq Tablet PO 40 meq BIDWM KELVIN Administration Results 07/28/17 03:51 07/29/17 04:43 Comprehensive Metabolic Panel 07/29/17 Range/Units 04:43 Sodium 139 (134-144) MEQ/L Potassium 4.2 (3.6-5) MEQ/L Chloride 99 (98-107) MEQ/L Carbon Dioxide 28 (22-30) MEQ/L BUN 37.0 H (7-17) MG/DL Creatinine 1.3 H D (0.7-1.2) mg/dL Glucose 110 (65-110) MG/DL Calcium 10.0 (8.4-10.2) MG/DL Intake and Output 07/28/17 07/29/17 07/29/17 22:59 06:59 14:59 Intake Total 300 / 300 120 / 120 Output Total 1000 / 1000 1100 / 1100 Balance -1000 / -1000 -800 / -800 120 / 120 Intake: Oral 300 / 300 120 / 120 Output: Urine 1000 / 1000 1100 / 1100 Other: Urine Appearance Clear Clear Urine Color Yellow Dark Yellow Urine Odor Normal Normal # Voids 1 1 Weight 82.6 kg Patient Weight 07/30/17 06:59 Weight 82.6 kg Assessment and Plan - Assessment and Plan (1) CAP (community acquired pneumonia) Current visit: Yes Status: Acute (2) Atrial fibrillation with RVR Current visit: Yes Status: Chronic (3) Pulmonary hypertension Current visit: Yes Status: Acute (4) CAD (coronary artery disease) Current visit: Yes Status: Acute (5) Acute systolic (congestive) heart failure Current visit: Yes Status: Acute - Attestation Attestation Narrative: 07/29/17 09:11 Patient seen by me and evaluated by on the date of this note. I have reviewed lab, radiology, EKG's, all other clinical findings and I have determined this plan of care and I agree with this note. Hospital Course Summary Disclaimer: The visit summary below is not to be considered part of the above Progress Note.
[2017-07-28] MEDS: BENZONATATE 200 MG CAPSULE PO PRN (13:21)
--- NOTE | 2017-07-28 14:18 | Echocardiogram ---
DATE OF PROCEDURE July 27, 2017 REFERRING PHYSICIAN Anna Fair MD This is a two-dimensional echo with spectral Doppler, color-flow and M-mode. It was obtained in a patient with atrial fibrillation. Left atrium is dilated. Left ventricle end-diastolic dimension is normal. Left ventricle wall thickness is normal. LV systolic function is reduced with global hypokinesia with ejection fraction of about 35%. Right atrium is dilated. Right ventricle is normal. Aortic root dimension is normal. Mitral valve annulus is calcified. Mitral valve leaflets are normal with mild mitral regurgitation. Aortic valve shows fibrocalcific changes with no stenosis. Mild aortic insufficiency is present. Tricuspid valve shows moderate tricuspid regurgitation with mild pulmonary hypertension with estimated pulmonary artery systolic pressure of 39. Pulmonary valve shows no pulmonary insufficiency. There is no pericardial effusion. IMPRESSION 1. Global hypokinesia with ejection fraction of about 35%. 2. Biatrial dilation. 3. Mitral annulus calcification with mild mitral regurgitation. 4. Aortic sclerosis with mild aortic insufficiency. 5. Moderate tricuspid regurgitation with mild pulmonary hypertension with estimated pulmonary artery systolic pressure of 39. MTDD
--- NOTE | 2017-07-28 16:28 | Progress Note ---
- Date 07/28/17 Subjective: Patient seen today sitting in her chair following breakfast. She reports that she feels she is slowly improving. She does not feel strong enough to go home yet. She continues to require 2 L of oxygen. Is still coughing, but feels it is improving some. She's been able to ambulate better with less shortness of breath. She tells me the cardiology PA was in earlier today and told her that she still had "fluid." Sleeping okay. Appetite is fair. Had good bowel movement yesterday. Objective Vital signs: Temperature 96.5 F L 07/28/17 07:25 Pulse Rate 94 07/28/17 07:25 Respiratory Rate 16 07/28/17 07:32 Blood Pressure 126/71 07/28/17 07:25 Pulse Oximetry 94 07/28/17 15:00 Rhythm: Atrial Fibrillation with Normal Ventricular Rate Height/Weight/BMI: Height 1.5 m Weight 84 kg Body Mass Index 36.9 - Constitutional Present: no acute distress, well nourished, well developed - Routine HEENT Exam Head: Present: normocephalic, atraumatic - Routine Respiratory Exam Present: decreased breath sounds. Absent: accessory muscle use, respiratory distress, wheezes - Routine Cardiovascular Exam Present: no murmur, irregularly irregular - Routine Abdominal Exam Present: soft, non distended, non tender - Routine Extremities Exam Present: no edema, normal capillary refill - Routine Skin Exam Present: dry, warm - Routine Neurological Exam Present: alert, oriented X3 - Routine Lymphatic Exam Lymphatic: Absent: adenopathy - Routine Psychiatric Exam Present: normal affect, cooperative Results - Labs CBC & Chem 7: 07/28/17 03:51 07/28/17 03:51 Microbiology Results: Microbiology 07/23/17 22:47 Sputum, Expectorated Gram Stain - Final 07/23/17 22:47 Sputum, Expectorated Sputum Culture - Final Normal Respiratory Brina - Echocardiogram History of Echocardiogram: Date of Exam: 07/27/17. Type of Exam(s): US echo doppler complete. DATE OF PROCEDURE. July 27, 2017. REFERRING PHYSICIAN. Anna Fair MD. This is a two-dimensional echo with spectral Doppler, color-flow and M-mode. It was obtained in a patient with atrial fibrillation. Left atrium is dilated. Left ventricle end-diastolic dimension is normal. Left ventricle wall thickness is normal. LV systolic function is reduced with global hypokinesia with ejection fraction of about 35%. Right atrium is dilated. Right ventricle is normal. Aortic root dimension is normal. Mitral valve annulus is calcified. Mitral valve leaflets are normal with mild mitral regurgitation. Aortic valve shows fibrocalcific changes with no stenosis. Mild aortic insufficiency is present. Tricuspid valve shows moderate tricuspid regurgitation with mild pulmonary hypertension with estimated pulmonary artery systolic pressure of 39. Pulmonary valve shows no pulmonary insufficiency. There is no pericardial effusion. IMPRESSION. 1. Global hypokinesia with ejection fraction of about 35%. 2. Biatrial dilation. 3. Mitral annulus calcification with mild mitral regurgitation. 4. Aortic sclerosis with mild aortic insufficiency. 5. Moderate tricuspid regurgitation with mild pulmonary hypertension with estimated pulmonary artery systolic pressure of 39. Assessment and Plan (1) Congestive heart failure Problem details: Systolic/Diastolic-EF 35% 07/27/17 Current visit: Yes Status : Acute (2) CAP (community acquired pneumonia) Current visit: Yes Status: Acute (3) Atrial fibrillation with RVR Current visit: Yes Status: Chronic Assessment and Plan: Assessment: Acute hypoxic respiratory failure Sepsis-present on admission (leukocytosis, tachypnea, tachycardia) Pneumonia/bronchitis-acute Atrial Fibrillation with RVR - on Eliquis for chronic anticoagulation Diastolic heart failure with exacerbation with new diagnosis of systolic heart failure this hospitalization CKD-Stage IV KIRSTIN-CPAP with sleep HTN Dyslipidemia Osteoarthritis Depression DM2-insulin dependent Obesity Plan: Cardiology has converted from IV Bumex to po and started Entresto for new systolic heart failure. Ejection fraction 35%. Continue metoprolol and Cardizem. Repeat BMP in a.m. Continues to need 1-2 L of oxygen. Add Acapella. Try to wean oxygen as able. Continue DuoNeb. Kidney function improving Has completed antibiotic treatment for community-acquired pneumonia. DVT Prophylaxis: Eliquis Resuscitation Status: Full Code - Physician Narrative Physician: Anna Fair MD Narrative: Date: 07/28/17 Time: 2039 I have independently evaluated and examined this patient. I reviewed the chart, the patient's history, and the [employer]ER/PA's documented findings as above. We discussed and formulated the assessment and plan as above with additions as below: Mrs. Rosas reports that she was able to ambulate with physical therapy in the halls utilizing a walker with minimal dyspnea. She continues to have some cough productive of clear or cloudy sputum but overall respiratory symptoms are improved. She reports increased diuresis with Bumex. NAD, alert-on room air when I evaluated her late this afternoon. Crackles at the left base but no wheezing, good airflow Irregular cardiac rhythm Trace edema Ejection fraction 35%, combined systolic/diastolic dysfunction-med changes noted. Anticipate discharge tomorrow. Telemetry strips reviewed-atrial fibrillation with adequate rate control. Repeat chest x-ray in a.m. Discussed with Dr. Abdalla. Hospital Course Summary Disclaimer: The visit summary below is not to be considered part of the above Progress Note. Hospital Course: 07/24/17 Mrs. Rosas was admitted overnight with increasing dyspnea and pneumonia with treatment initiated as an outpatient. Oxygen saturation in the 80s at home prompting ER evaluation and subsequent admission. Continue ceftriaxone/azithromycin Wean oxygen as tolerated to maintain sats >90 Breathing treatments, RT consult Continue CPAP with sleep Follow sputum culture Continue home medications (hold parameters and reduced doses of some meds due to acute illness) Monitor on telemetry for atrial fibrillation; rate control poor-Dr. Bridges consulted. Diabetic diet, sliding scale insulin (on no basal at home), glucose monitoring 07/25/17 Continue antibiotics-day 3 ceftriaxone/azithromycin; my review of chest x-ray does not reveal infiltrate. Repeat chest x-ray in a.m., sputum culture pending. Persistent leukocytosis with fever overnight-blood cultures to be drawn if recurs. Continue supplemental oxygen as needed. Continue diuresis. Heart rate poorly controlled overnight with rates 110-150 by review of vital signs and telemetry strips. Diltiazem added to metoprolol by cardiology this morning and currently heart rate ranging upper 90s-110. Patient indicates digoxin recently discontinued. Renal function stable. 07/26/17 Continue antibiotics-day 4 ceftriaxone/azithromycin; my review of chest x-ray does not reveal infiltrate again today but there is increased heart failure. Cardiology increasing diuretics-converted to IV administration. White count normalizing, no recurrent fever. Slept poorly due to persistent cough and not using CPAP due to ongoing cough. Add Tussionex at night for symptom management Remains in atrial fibrillation (chronic) with improved rate control on metoprolol and diltiazem. 07/27/17 Continue antibiotics-day #5 ceftriaxone/azithromycin Continue supplemental oxygen as needed - down to 1 L (No previous home O2 use.) Remains in atrial fibrillation (chronic) with improved rate control on metoprolol and diltiazem. Echo results pending. Work with PT/OT. Hope to DC home tomorrow if stable. Per cardiology: Continue Potassium supplement and change to daily dosing - monitor lab closely Will give IV Bumex 2mg today and tomorrow and monitor response 07/28/17 Cardiology has converted from IV Bumex to po and started Entresto for new systolic heart failure. Ejection fraction 35%. Continue metoprolol and Cardizem. Repeat BMP in a.m. Continues to need 1-2 L of oxygen. Add Acapella. Try to wean oxygen as able. Continue DuoNeb. Kidney function improving Has completed antibiotic treatment for community-acquired pneumonia.
[2017-07-28] MEDS: BUMETANIDE 1 MG TABLET PO SCH (18:04)
[2017-07-28] MEDS: HYDROCODONE/CHLORPHENIRAMINE ER ORAL LIQ 5ml PO SCH (21:49)
[2017-07-28] MEDS: SACUBITRIL/VALSARTAN 24/26mg TABLET PO SCH (21:50)
[2017-07-28] MEDS: MELATONIN 1 MG TABLET PO SCH (21:50)
[2017-07-29] MEDS: ALBUTEROL/IPRATROPIUM 2.5mg-0.5mg/3ml NEB AEROSOL SCH ×2 (07:20→19:30)
[2017-07-29] MEDS: BENZONATATE 200 MG CAPSULE PO PRN ×2 (08:22→20:55)
[2017-07-29] MEDS: BUMETANIDE 1 MG TABLET PO SCH ×2 (08:23→15:10)
[2017-07-29] MEDS: APIXABAN 2.5 MG TABLET PO SCH ×2 (08:23→20:53)
[2017-07-29] MEDS: SACUBITRIL/VALSARTAN 24/26mg TABLET PO SCH ×2 (08:23→20:52)
[2017-07-29] MEDS: BUSPIRONE 10 MG TABLET PO SCH ×2 (08:24→12:20)
[2017-07-29] MEDS: SERTRALINE 100 MG TABLET PO SCH (08:24)
[2017-07-29] MEDS: HYDRALAZINE 25 MG TABLET PO SCH ×3 (08:24→17:54)
[2017-07-29] MEDS: ALLOPURINOL 100 MG TABLET PO SCH ×2 (08:25→20:52)
[2017-07-29] MEDS: CALCITRIOL 0.25 MCG CAPSULE PO SCH (08:25)
[2017-07-29] MEDS: METOPROLOL SUCCINATE 200 MG PO SCH (08:31)
[2017-07-29] MEDS: HYDROCODONE/APAP 5mg/325mg TABLET PO PRN (08:35)
--- NOTE | 2017-07-29 08:45 | XRay Report ---
INDICATION: pneumonia/CHF PROCEDURE: CHEST 2-VIEWS UPRIGHT (PA & LAT) Encounter: Initial COMPARISON: July 26, 2017 FINDINGS: Chronic bilateral increased interstitial markings in the lower lung jenkins. Slight decrease in left lower lobe consolidation. No pneumothorax or effusion. Heart size and mediastinal contours are stable. Pulmonary vascularity is unchanged. Impression: Slightly improved left lower lobe pneumonia. .
--- NOTE | 2017-07-29 11:03 | Cardiology Progress Note ---
<Mariajose Negrete M - Last Filed: 07/29/17 13:49> Subjective Principal diagnosis: Chronic Atrial Fibrillation Interval history: Aleisha is seen in follow up for A Fib and acute systolic HF. She is tolerating Entresto well, BP WNL. She still complains of cough but is in no distress on room air, she denies chest pain, palpitations. Exam Vital signs: Temperature 97.3 F 07/29/17 07:44 Pulse Rate 91 07/29/17 07:44 Respiratory Rate 16 07/29/17 07:44 Blood Pressure 125/69 07/29/17 07:44 Pulse Oximetry 95 07/29/17 07:44 Inpatient Medications: Generic Name Dose Route Start Last Admin Trade Name Freq PRN Reason Stop Dose Admin Hydrocodone Bitart/Acetaminophen 1 tab 07/23/17 23:06 07/29/17 08:35 Bowlegs 5/325 PO 1 tab Q6H PRN Administration Pain Albuterol/Ipratropium 3 ml 07/24/17 07:00 07/29/17 07:20 Duoneb AEROSOL 3 ml RTBID KELVIN Administration Albuterol/Ipratropium 3 ml 07/24/17 01:27 Duoneb AEROSOL PRN PRN Allopurinol 100 mg 07/25/17 21:00 07/29/17 08:25 Zyloprim PO 100 mg BID KELVIN Administration Apixaban 2.5 mg 07/24/17 09:38 07/29/17 08:23 Eliquis PO 2.5 mg BID KELVIN Administration Benzonatate 200 mg 07/24/17 01:34 07/29/17 08:22 Tessalon Perles PO 200 mg TID PRN Administration Cough Bumetanide 2 mg 07/28/17 10:41 07/29/17 08:30 Bumex 1 Mg/4 Ml Inj. IVP Not Given DAILY KELVIN Bumetanide 2 mg 07/28/17 17:30 07/29/17 08:23 Bumex 1 Mg Tab PO 2 mg BIDBS KELVIN Administration Buspirone HCl 10 mg 07/26/17 08:00 07/29/17 08:24 Buspar PO 10 mg 0800,1200 KELVIN Administration Calcitriol 0.5 mcg 07/26/17 09:00 07/29/17 08:25 Rocaltrol PO 0.5 mcg DAILY KELVIN Administration Chlorphenir/Hydrocodone Polistirex 5 ml 07/26/17 21:00 07/28/17 21:49 Tussionex PO 5 ml HS KELVIN Administration Diltiazem HCl 180 mg 07/25/17 21:00 07/29/17 08:24 Cardizem Cd 180 Mg PO 180 mg BID KELVIN Administration Glucose 37.5 gm 07/24/17 09:23 Glutose 15 PO PRN PRN Hypoglycemia Hydralazine HCl 50 mg 07/24/17 12:00 07/29/17 08:24 Apresoline PO 50 mg TIDWM KELVIN Administration Insulin Aspart 1 - 5 unit 07/24/17 09:23 07/27/17 17:22 Novolog SQ 1 unit SS PRN Administration Hyperglycemia Protocol Melatonin 3 mg 07/25/17 21:00 07/28/17 21:50 Melatonin PO 3 mg HS KELVIN Administration Metoprolol Succinate 200 mg 07/24/17 15:45 07/29/17 08:31 Toprol Xl PO 200 mg DAILY KELVIN Administration Ondansetron HCl 4 mg 07/23/17 23:06 Zofran IVP Q6H PRN Nausea &/or vomiting Potassium Chloride 40 meq 07/28/17 08:00 07/29/17 08:24 K-Dur 20 Meq Tablet PO 40 meq WB KELVIN Administration Sacubitril/Valsartan 1 tab 07/28/17 21:00 07/29/17 08:23 Entresto 24/26mg PO 1 tab BID KELVIN Administration Sertraline HCl 100 mg 07/24/17 09:15 07/29/17 08:24 Zoloft PO 100 mg DAILY KELVIN Administration Sodium Chloride 10 - 80 ml 07/23/17 20:20 07/27/17 21:13 Iv Flush IVF 10 ml PRN PRN Administration Flushing Discontinued Medications Generic Name Dose Route Start Last Admin Trade Name Freq PRN Reason Stop Dose Admin Albuterol/Ipratropium 3 ml 07/23/17 20:20 07/23/17 20:41 Duoneb AEROSOL 07/23/17 20:21 3 ml O ONE Administration Albuterol/Ipratropium 3 ml 07/24/17 01:16 07/24/17 01:19 Duoneb AEROSOL 3 ml RTBID PRN Administration Apixaban 2.5 mg 07/24/17 21:00 Eliquis PO BID KELVIN Azithromycin 250 mg 07/24/17 10:00 07/27/17 05:59 Zithromax PO 07/27/17 06:31 250 mg ACB KELVIN Administration Bumetanide 2 mg 07/28/17 15:00 Bumex 1 Mg/4 Ml Inj. IVP DAILY KELVIN Bupropion HCl 150 mg 07/24/17 09:15 07/24/17 10:25 Wellbutrin Xl PO 150 mg DAILY KELVIN Administration Buspirone HCl 10 mg 07/24/17 21:00 07/25/17 21:12 Buspar PO 10 mg BID KELVIN Administration Carvedilol 25 mg 07/24/17 09:00 07/24/17 08:12 Coreg PO 25 mg BID KELVIN Administration Carvedilol 25 mg 07/24/17 17:30 Coreg PO BIDWM KELVIN Diltiazem HCl 180 mg 07/24/17 09:00 07/24/17 08:12 Cardizem Cd 180 Mg PO 180 mg BID KELVIN Administration Diltiazem HCl 180 mg 07/25/17 09:00 07/25/17 08:36 Cardizem Cd 180 Mg PO 180 mg DAILY KELVIN Administration Furosemide 20 mg 07/24/17 00:33 07/24/17 01:51 Lasix 20 Mg/2 Ml IVP 07/24/17 00:34 20 mg ONCE ONE Administration Furosemide 40 mg 07/24/17 10:00 07/25/17 08:35 Lasix 40 Mg Tab PO 40 mg 0900,1700 KELVIN Administration Furosemide 80 mg 07/26/17 08:00 07/26/17 08:11 Lasix 40 Mg Tab PO 80 mg DAILY@0800 [facility], [facility] Administration Furosemide 40 mg 07/26/17 12:00 Lasix 40 Mg Tab PO NOON KELVIN Furosemide 80 mg 07/26/17 17:00 07/27/17 08:35 Lasix 100 Mg/10 Ml IVP 80 mg [id number] KELVIN Administration Furosemide 40 mg 07/27/17 17:00 Lasix 40 Mg Tab PO 0900,1700 [facility], [facility] Sodium Chloride 1,000 mls @ 150 mls/hr 07/23/17 22:00 07/25/17 21:55 Normal Saline IV 07/24/17 00:10 Infused .Q6H40M KELVIN Infusion Ceftriaxone Sodium 1 gm/ 100 mls @ 200 mls/hr 07/23/17 22:32 07/23/17 23:15 Sodium Chloride IV 07/23/17 23:01 Infused O ONE Infusion Ceftriaxone Sodium 1 g/ Sodium 50 mls @ 100 mls/hr 07/24/17 20:00 07/27/17 21 :36 Chloride IV 07/28/17 01:00 Infused Q24H KELVIN Infusion Potassium Chloride 20 meq 07/24/17 17:30 K-Dur 20 Meq Tablet PO BIDWM KELVIN Potassium Chloride 20 meq 07/24/17 09:45 07/26/17 08:14 K-Dur 20 Meq Tablet PO 20 meq BIDWM KELVIN Administration Potassium Chloride 40 meq 07/26/17 17:30 07/27/17 08:33 K-Dur 20 Meq Tablet PO 40 meq BIDWM KELVIN Administration - Constitutional no acute distress, well nourished, cooperative - Routine HEENT Exam Head: Present: normocephalic ENT: Present: mucous membranes moist - Routine Neck Exam Absent: JVD, carotid bruit - Routine Chest/Breast/Axilla Exam Chest wall: Absent: tenderness - Routine Respiratory Exam Present: decreased breath sounds - Routine Cardiovascular Exam Present: no murmur, tachycardia, irregular rhythm - Routine Abdominal Exam Present: soft, normoactive bowel sounds - Routine Extremities Exam Present: no edema - Routine Skin Exam Present: intact, dry, warm - Routine Neurological Exam Present: alert, oriented X3 - Routine Psychiatric Exam Present: normal affect, normal thought process Results 07/28/17 03:51 07/29/17 04:43 Comprehensive Metabolic Panel 07/29/17 Range/Units 04:43 Sodium 139 (134-144) MEQ/L Potassium 4.2 (3.6-5) MEQ/L Chloride 99 (98-107) MEQ/L Carbon Dioxide 28 (22-30) MEQ/L BUN 37.0 H (7-17) MG/DL Creatinine 1.3 H D (0.7-1.2) mg/dL Glucose 110 (65-110) MG/DL Calcium 10.0 (8.4-10.2) MG/DL Intake and Output 07/28/17 07/29/17 07/29/17 22:59 06:59 14:59 Intake Total 300 / 300 120 / 120 Output Total 1000 / 1000 1100 / 1100 Balance -1000 / -1000 -800 / -800 120 / 120 Intake: Oral 300 / 300 120 / 120 Output: Urine 1000 / 1000 1100 / 1100 Other: Urine Appearance Clear Clear Urine Color Yellow Dark Yellow Urine Odor Normal Normal # Voids 1 1 Weight 182 lb 1.629 oz Patient Weight 07/30/17 06:59 Weight 182 lb 1.629 oz - Imaging and Cardiology Imaging & Cardiology Narrative: Date of Exam: 07/29/17 Ordering Provider: Anna Fair MD Type of Exam(s): XR chest 2V Reason for Exam(s): pneumonia/CHF INDICATION: pneumonia/CHF PROCEDURE: CHEST 2-VIEWS UPRIGHT (PA & LAT) Encounter: Initial COMPARISON: July 26, 2017 FINDINGS: Chronic bilateral increased interstitial markings in the lower lung jenkins. Slight decrease in left lower lobe consolidation. No pneumothorax or effusion. Heart size and mediastinal contours are stable. Pulmonary vascularity is unchanged. Impression: Slightly improved left lower lobe pneumonia. 07/29/17 11:00 Assessment and Plan - Assessment and Plan (1) CAP (community acquired pneumonia) Status: Acute (2) Atrial fibrillation with RVR Status: Chronic (3) Pulmonary hypertension Status: Acute (4) CAD (coronary artery disease) Status: Acute (5) Acute systolic (congestive) heart failure Status: Acute - Assessment and Plan 07/24/17: CAP and hypoxia per attending. BNP elevated, CHF exacerbation mild by clinical exam; likely acute respiratory illness induced. Home lasix restarted 40mg bid, pt had one time dose of lasix 20mg IV. DC coreg 25mg bid. change Diltiazem to 180mg daily, initiate metoprolol succinate 200mg daily. Continue Eliquis 2.5mg bid, metoprolol and diltiazem for rate control. Continue home Zocor, statin. 07/25/17: Pt stable today, HR hanging around 80-120's. Will increase diltiazem to bid to for improved rate control, diltiazem cd 180mg bid. Continue metoprolol succinate 200mg daily, changed from home coreg for improved rate effect of BB therapy. Home Eliquis 2.5mg bid, low dose due to renal function impairment. Home Zocor. Discussed additional diureses with Dr. Fair, I think the patient is mildly fluid volume up, diuresis would improve her respiratory status and aid in rate control. 07/26/17: Tele afib, rate improved today, in the 80's at rest, up to 100's with activity. Chest xray this AM look like mild increased vascular congestion, weight up and I &O's reflect positive fluid gain since admission. Repeat BNP is up from 3300 to 5300. DC PO lasix, IV lasix 80mg bid. PO potassium 20meq TID Continue Metoprolol succinate 200mg daily, Diltiazem 180mg bid & Eliquis for AFib management. Obtain ECHO in AM to eval EF and right heart status. Last ECHO in office 08/2016 , EF 60%, diastolic dysfunction, no significant valvular dysfunction, IVC dilated. Continue home Eliquis 2.5mg bid 07/27/17 F/U Acute Diastolic heart failure due to atrial fibrillation a patient with pulmonary compromise with CAP and COPD/Acute hypoxic respiratory failure EKG afib rate controlled 80 bpm Medications reviewed Continue Eliquis Creatinine improved with IV Lasix BNP not performed today Yesterday BNP high Continue Potassium supplement and change to daily dosing - monitor lab closely Will give IV Bumex 2mg today and tomorrow and monitor response Then consider changing to oral lasix. Clinically patient does not have significant signs of CHF 07/28/17 Clinically patient improved Will change IV Bumex to Bumex 2mg po BID and start Entresto 24/26mg daily as patient has a new diagnosis of systolic heart failure EF now 35% We will continue her Metoprolol and Cardizem for heart rate control - Dr. Cyrus colon with this combination Patient can likely be discharged in 1 to 2 days depending upon how she tolerates her new Entresto We will try to wean the oral Bumex down to possibly 1mg po daily upon discharge 07/29/17 BP tolerating Entresto, continue to monitor SCr 1.3 today, continue Bumex Hospital Course Summary Disclaimer: The visit summary below is not to be considered part of the above Progress Note. Hospital Course: 07/24/17 Mrs. Rosas was admitted overnight with increasing dyspnea and pneumonia with treatment initiated as an outpatient. Oxygen saturation in the 80s at home prompting ER evaluation and subsequent admission. Continue ceftriaxone/azithromycin Wean oxygen as tolerated to maintain sats >90 Breathing treatments, RT consult Continue CPAP with sleep Follow sputum culture Continue home medications (hold parameters and reduced doses of some meds due to acute illness) Monitor on telemetry for atrial fibrillation; rate control poor-Dr. Bridges consulted. Diabetic diet, sliding scale insulin (on no basal at home), glucose monitoring 07/25/17 Continue antibiotics-day 3 ceftriaxone/azithromycin; my review of chest x-ray does not reveal infiltrate. Repeat chest x-ray in a.m., sputum culture pending. Persistent leukocytosis with fever overnight-blood cultures to be drawn if recurs. Continue supplemental oxygen as needed. Continue diuresis. Heart rate poorly controlled overnight with rates 110-150 by review of vital signs and telemetry strips. Diltiazem added to metoprolol by cardiology this morning and currently heart rate ranging upper 90s-110. Patient indicates digoxin recently discontinued. Renal function stable. 07/26/17 Continue antibiotics-day 4 ceftriaxone/azithromycin; my review of chest x-ray does not reveal infiltrate again today but there is increased heart failure. Cardiology increasing diuretics-converted to IV administration. White count normalizing, no recurrent fever. Slept poorly due to persistent cough and not using CPAP due to ongoing cough. Add Tussionex at night for symptom management Remains in atrial fibrillation (chronic) with improved rate control on metoprolol and diltiazem. 07/27/17 Continue antibiotics-day #5 ceftriaxone/azithromycin Continue supplemental oxygen as needed - down to 1 L (No previous home O2 use.) Remains in atrial fibrillation (chronic) with improved rate control on metoprolol and diltiazem. Echo results pending. Work with PT/OT. Hope to DC home tomorrow if stable. Per cardiology: Continue Potassium supplement and change to daily dosing - monitor lab closely Will give IV Bumex 2mg today and tomorrow and monitor response 07/28/17 Cardiology has converted from IV Bumex to po and started Entresto for new systolic heart failure. Ejection fraction 35%. Continue metoprolol and Cardizem. Repeat BMP in a.m. Continues to need 1-2 L of oxygen. Add Acapella. Try to wean oxygen as able. Continue DuoNeb. Kidney function improving Has completed antibiotic treatment for community-acquired pneumonia. <Fermin Bridges - Last Filed: 08/04/17 12:29> Exam Vital signs: Temperature 97.2 F 07/30/17 12:00 Pulse Rate 83 07/30/17 12:00 Respiratory Rate 18 07/30/17 12:00 Blood Pressure 110/63 07/30/17 12:00 Pulse Oximetry 97 07/30/17 12:00 Inpatient Medications: Discontinued Medications Generic Name Dose Route Start Last Admin Trade Name Freq PRN Reason Stop Dose Admin Hydrocodone Bitart/Acetaminophen 1 tab 07/23/17 23:06 07/29/17 08:35 Bowlegs 5/325 PO 1 tab Q6H PRN Administration Pain Albuterol/Ipratropium 3 ml 07/23/17 20:20 07/23/17 20:41 Duoneb AEROSOL 07/23/17 20:21 3 ml O ONE Administration Albuterol/Ipratropium 3 ml 07/24/17 01:16 07/24/17 01:19 Duoneb AEROSOL 3 ml RTBID PRN Administration Albuterol/Ipratropium 3 ml 07/24/17 07:00 07/30/17 07:07 Duoneb AEROSOL 3 ml RTBID KELVIN Administration Albuterol/Ipratropium 3 ml 07/24/17 01:27 Duoneb AEROSOL PRN PRN Allopurinol 100 mg 07/25/17 21:00 07/30/17 08:40 Zyloprim PO 100 mg BID KELVIN Administration Apixaban 2.5 mg 07/24/17 21:00 Eliquis PO BID KELVIN Apixaban 2.5 mg 07/24/17 09:38 07/30/17 08:40 Eliquis PO 2.5 mg BID KELVIN Administration Azithromycin 250 mg 07/24/17 10:00 07/27/17 05:59 Zithromax PO 07/27/17 06:31 250 mg ACB KELVIN Administration Benzonatate 200 mg 07/24/17 01:34 07/29/17 20:55 Tessalon Perles PO 200 mg TID PRN Administration Cough Bumetanide 2 mg 07/28/17 15:00 Bumex 1 Mg/4 Ml Inj. IVP DAILY KELVIN Bumetanide 2 mg 07/28/17 10:41 07/29/17 08:30 Bumex 1 Mg/4 Ml Inj. IVP Not Given DAILY KELVIN Bumetanide 2 mg 07/28/17 17:30 07/29/17 08:23 Bumex 1 Mg Tab PO 2 mg BIDBS KELVIN Administration Bumetanide 2 mg 07/29/17 14:00 07/30/17 08:39 Bumex 1 Mg Tab PO 2 mg [id number] KELVIN Administration Bupropion HCl 150 mg 07/24/17 09:15 07/24/17 10:25 Wellbutrin Xl PO 150 mg DAILY KELVIN Administration Buspirone HCl 10 mg 07/24/17 21:00 07/25/17 21:12 Buspar PO 10 mg BID KELVIN Administration Buspirone HCl 10 mg 07/26/17 08:00 07/30/17 11:58 Buspar PO 10 mg 0800,1200 [facility], [facility] Administration Calcitriol 0.5 mcg 07/26/17 09:00 07/30/17 08:36 Rocaltrol PO 0.5 mcg DAILY [facility] Administration Carvedilol 25 mg 07/24/17 09:00 07/24/17 08:12 Coreg PO 25 mg BID KELVIN Administration Carvedilol 25 mg 07/24/17 17:30 Coreg PO BIDWM [facility], [facility] Chlorphenir/Hydrocodone Polistirex 5 ml 07/26/17 21:00 07/29/17 20:53 Tussionex PO 5 ml HS [facility] Administration Diltiazem HCl 180 mg 07/24/17 09:00 07/24/17 08:12 Cardizem Cd 180 Mg PO 180 mg BID [facility] Administration Diltiazem HCl 180 mg 07/25/17 09:00 07/25/17 08:36 Cardizem Cd 180 Mg PO 180 mg DAILY [facility] Administration Diltiazem HCl 180 mg 07/25/17 21:00 07/30/17 08:37 Cardizem Cd 180 Mg PO 180 mg BID [facility] Administration Furosemide 20 mg 07/24/17 00:33 07/24/17 01:51 Lasix 20 Mg/2 Ml IVP 07/24/17 00:34 20 mg ONCE ONE Administration Furosemide 40 mg 07/24/17 10:00 07/25/17 08:35 Lasix 40 Mg Tab PO 40 mg 0900,1700 [facility] Administration Furosemide 80 mg 07/26/17 08:00 07/26/17 08:11 Lasix 40 Mg Tab PO 80 mg DAILY@0800 KELVIN Administration Furosemide 40 mg 07/26/17 12:00 Lasix 40 Mg Tab PO NOON KELVIN Furosemide 80 mg 07/26/17 17:00 07/27/17 08:35 Lasix 100 Mg/10 Ml IVP 80 mg [id number] KELVIN Administration Furosemide 40 mg 07/27/17 17:00 Lasix 40 Mg Tab PO 0900,1700 KELVIN Glucose 37.5 gm 07/24/17 09:23 Glutose 15 PO PRN PRN Hypoglycemia Hydralazine HCl 50 mg 07/24/17 12:00 07/30/17 11:58 Apresoline PO 50 mg TIDWM KELVIN Administration Sodium Chloride 1,000 mls @ 150 mls/hr 07/23/17 22:00 07/25/17 21:55 Normal Saline IV 07/24/17 00:10 Infused .Q6H40M KELVIN Infusion Ceftriaxone Sodium 1 gm/ 100 mls @ 200 mls/hr 07/23/17 22:32 07/23/17 23:15 Sodium Chloride IV 07/23/17 23:01 Infused O ONE Infusion Ceftriaxone Sodium 1 g/ Sodium 50 mls @ 100 mls/hr 07/24/17 20:00 07/27/17 21 :36 Chloride IV 07/28/17 01:00 Infused Q24H KELVIN Infusion Insulin Aspart 1 - 5 unit 07/24/17 09:23 07/27/17 17:22 Novolog SQ 1 unit SS PRN Administration Hyperglycemia Protocol Melatonin 3 mg 07/25/17 21:00 07/29/17 20:53 Melatonin PO 3 mg HS KELVIN Administration Metoprolol Succinate 200 mg 07/24/17 15:45 07/30/17 08:38 Toprol Xl PO 200 mg DAILY KELVIN Administration Ondansetron HCl 4 mg 07/23/17 23:06 Zofran IVP Q6H PRN Nausea &/or vomiting Potassium Chloride 20 meq 07/24/17 17:30 K-Dur 20 Meq Tablet PO BIDWM KELVIN Potassium Chloride 20 meq 07/24/17 09:45 07/26/17 08:14 K-Dur 20 Meq Tablet PO 20 meq BIDWM KELVIN Administration Potassium Chloride 40 meq 07/26/17 17:30 07/27/17 08:33 K-Dur 20 Meq Tablet PO 40 meq BIDWM KELVIN Administration Potassium Chloride 40 meq 07/28/17 08:00 07/29/17 08:24 K-Dur 20 Meq Tablet PO 40 meq WB KELVIN Administration Sacubitril/Valsartan 1 tab 07/28/17 21:00 07/30/17 08:38 Entresto 24/26mg PO 1 tab BID KELVIN Administration Sertraline HCl 100 mg 07/24/17 09:15 07/30/17 08:38 Zoloft PO 100 mg DAILY KELVIN Administration Sodium Chloride 10 - 80 ml 07/23/17 20:20 07/27/17 21:13 Iv Flush IVF 10 ml PRN PRN Administration Flushing Results 07/28/17 03:51 07/30/17 04:30 Assessment and Plan - Assessment and Plan (1) CAP (community acquired pneumonia) Status: Acute (2) Atrial fibrillation with RVR Status: Chronic (3) Pulmonary hypertension Status: Acute (4) CAD (coronary artery disease) Status: Acute (5) Acute systolic (congestive) heart failure Status: Acute - Attestation Attestation Narrative: 08/04/17 12:29 Recommendation After examining the patient I agree with the above assessment. I am involved in the formulation of the patient's plan of care. Hospital Course Summary Disclaimer: The visit summary below is not to be considered part of the above Progress Note.
--- NOTE | 2017-07-29 16:47 | Progress Note ---
- Date 07/29/17 Subjective: Mrs. Rosas complained of her voice being slightly coarse and some lingering cough but minimal sputum production. She denied dyspnea while walking and had stable oxygen saturation on room air ambulating earlier today. She denies palpitations, nausea, or lightheadedness. She is tolerating medication changes introduced by cardiology but notes that she voided frequently much of the night due to dose of diuretic given at supper. She's been off oxygen during the day today but required reinitiation of 1 L supplemental oxygen overnight last night. Objective Vital signs: Temperature 97.3 F 07/29/17 07:44 Pulse Rate 80 07/29/17 16:00 Respiratory Rate 20 07/29/17 16:00 Blood Pressure 122/71 07/29/17 16:00 Pulse Oximetry 94 -RA 07/29/17 16:15 NAD, alert, fluent speech-voice slightly hoarse Respirations nonlabored, good airflow, breath sounds clear except crackles at the left base Irregular rhythm, S1-S2 Abdomen soft, nontender, bowel sounds present Trace edema bilateral ankles MAEW, stable gait ambulating Rhythm: Atrial Fibrillation with Normal Ventricular Rate Height/Weight/BMI: Height 1.5 m Weight 82.6 kg Body Mass Index 36.9 Results - Labs CBC & Chem 7: 07/28/17 03:51 07/29/17 04:43 Microbiology Results: Microbiology 07/23/17 22:47 Sputum, Expectorated Gram Stain - Final 07/23/17 22:47 Sputum, Expectorated Sputum Culture - Final Normal Respiratory [facility] - Imaging and Cardiology Chest x-ray Status: image reviewed by me (residual atelectasis/infiltrate at the left base- improving) Assessment and Plan (1) Congestive heart failure Problem details: Systolic/Diastolic-EF 35% 07/27/17 Current visit: Yes Status : Acute (2) CAP (community acquired pneumonia) Current visit: Yes Status: Acute (3) Atrial fibrillation with RVR Current visit: Yes Status: Chronic Assessment and Plan: Assessment: Acute hypoxic respiratory failure Sepsis-present on admission (leukocytosis, tachypnea, tachycardia) Pneumonia/bronchitis-acute Atrial Fibrillation with RVR - on Eliquis for chronic anticoagulation Diastolic heart failure with exacerbation with new diagnosis of systolic heart failure this hospitalization CKD-Stage IV KIRSTIN-CPAP with sleep HTN Dyslipidemia Osteoarthritis Depression DM2-insulin dependent Obesity Plan: Respiratory status continues to improve; ambulatory oximetry on room air with saturations 94-97%-will not need O2 with activities. Overnight oximetry tonight to determine if supplemental oxygen will be needed with CPAP. Tolerating Entresto for systolic heart failure. Ejection fraction 35%. Continue metoprolol and Cardizem. On Bumex 2 mg twice a day-time of administration shifted so given earlier in the day. Medication changes reviewed with patient's gate clerk (Dr. Nicole) and he is requested follow-up in one to 2 weeks following discharge for reassessment of electrolytes/creatinine. Anticipate discharge tomorrow. DVT Prophylaxis: Eliquis Resuscitation Status: Full Code - Physician Narrative Narrative: Date: 07/29/17 Time: 1643 Hospital Course Summary Disclaimer: The visit summary below is not to be considered part of the above Progress Note. Hospital Course: 07/24/17 Mrs. Rosas was admitted overnight with increasing dyspnea and pneumonia with treatment initiated as an outpatient. Oxygen saturation in the 80s at home prompting ER evaluation and subsequent admission. Continue ceftriaxone/azithromycin Wean oxygen as tolerated to maintain sats >90 Breathing treatments, RT consult Continue CPAP with sleep Follow sputum culture Continue home medications (hold parameters and reduced doses of some meds due to acute illness) Monitor on telemetry for atrial fibrillation; rate control poor-Dr. Bridges consulted. Diabetic diet, sliding scale insulin (on no basal at home), glucose monitoring 07/25/17 Continue antibiotics-day 3 ceftriaxone/azithromycin; my review of chest x-ray does not reveal infiltrate. Repeat chest x-ray in a.m., sputum culture pending. Persistent leukocytosis with fever overnight-blood cultures to be drawn if recurs. Continue supplemental oxygen as needed. Continue diuresis. Heart rate poorly controlled overnight with rates 110-150 by review of vital signs and telemetry strips. Diltiazem added to metoprolol by cardiology this morning and currently heart rate ranging upper 90s-110. Patient indicates digoxin recently discontinued. Renal function stable. 07/26/17 Continue antibiotics-day 4 ceftriaxone/azithromycin; my review of chest x-ray does not reveal infiltrate again today but there is increased heart failure. Cardiology increasing diuretics-converted to IV administration. White count normalizing, no recurrent fever. Slept poorly due to persistent cough and not using CPAP due to ongoing cough. Add Tussionex at night for symptom management Remains in atrial fibrillation (chronic) with improved rate control on metoprolol and diltiazem. 07/27/17 Continue antibiotics-day #5 ceftriaxone/azithromycin Continue supplemental oxygen as needed - down to 1 L (No previous home O2 use.) Remains in atrial fibrillation (chronic) with improved rate control on metoprolol and diltiazem. Echo results pending. Work with PT/OT. Hope to DC home tomorrow if stable. Per cardiology: Continue Potassium supplement and change to daily dosing - monitor lab closely Will give IV Bumex 2mg today and tomorrow and monitor response 07/28/17 Cardiology has converted from IV Bumex to po and started Entresto for new systolic heart failure. Ejection fraction 35%. Continue metoprolol and Cardizem. Repeat BMP in a.m. Continues to need 1-2 L of oxygen. Add Acapella. Try to wean oxygen as able. Continue DuoNeb. Kidney function improving Has completed antibiotic treatment for community-acquired pneumonia. 07/29/17 Respiratory status continues to improve; ambulatory oximetry on room air with saturations 94-97%-will not need O2 with activities. Overnight oximetry tonight to determine if supplemental oxygen will be needed with CPAP. Tolerating Entresto for systolic heart failure. Ejection fraction 35%. Continue metoprolol and Cardizem. On Bumex 2 mg twice a day-time of administration shifted so given earlier in the day. Medication changes reviewed with patient's gate clerk (Dr. Nicole) and he is requested follow-up in one to 2 weeks following discharge for reassessment of electrolytes/creatinine. Anticipate discharge tomorrow.
[2017-07-29] MEDS: HYDROCODONE/CHLORPHENIRAMINE ER ORAL LIQ 5ml PO SCH (20:53)
[2017-07-29] MEDS: MELATONIN 1 MG TABLET PO SCH (20:53)
[2017-07-30] MEDS: ALBUTEROL/IPRATROPIUM 2.5mg-0.5mg/3ml NEB AEROSOL SCH (07:07)
[2017-07-30 07:51] VITALS: RESP 18
[2017-07-30] MEDS: CALCITRIOL 0.25 MCG CAPSULE PO SCH (08:36)
[2017-07-30] MEDS: SERTRALINE 100 MG TABLET PO SCH (08:38)
[2017-07-30] MEDS: SACUBITRIL/VALSARTAN 24/26mg TABLET PO SCH (08:38)
[2017-07-30] MEDS: METOPROLOL SUCCINATE 200 MG PO SCH (08:38)
[2017-07-30] MEDS: BUMETANIDE 1 MG TABLET PO SCH (08:39)
[2017-07-30] MEDS: APIXABAN 2.5 MG TABLET PO SCH (08:40)
[2017-07-30] MEDS: HYDRALAZINE 25 MG TABLET PO SCH ×2 (08:40→11:58)
[2017-07-30] MEDS: BUSPIRONE 10 MG TABLET PO SCH ×2 (08:40→11:58)
[2017-07-30] MEDS: ALLOPURINOL 100 MG TABLET PO SCH (08:40)
[2017-07-30 13:35] VITALS: BP 110/63; PULSE 83; TEMP 97.2; O2SAT 97
--- NOTE | 2017-07-30 14:43 | Discharge Summary ---
Discharge Information Date of admission: 07/23/17 22:37 Anticipated date of discharge: 07/30/17 Attending Physician: Anna Fair MD Primary care physician: Raj Abdalla DO Consults: Consulting Provider: Fermin Bridges - Discharge Diagnosis (1) Congestive heart failure Status: Acute (2) CAP (community acquired pneumonia) Status: Acute (3) Atrial fibrillation with RVR Status: Chronic Acute hypoxic respiratory failure Sepsis-present on admission (leukocytosis, tachypnea, tachycardia) Pneumonia/bronchitis-acute Atrial Fibrillation with RVR - on Eliquis for chronic anticoagulation Diastolic heart failure with exacerbation with new diagnosis of systolic heart failure this hospitalization CKD-Stage IV KIRSTIN-CPAP with sleep HTN Dyslipidemia Osteoarthritis Depression DM2-insulin dependent Obesity - Procedures Procedures: Date of Exam: 07/27/17 Type of Exam(s): US echo doppler complete DATE OF PROCEDURE July 27, 2017 REFERRING PHYSICIAN Anna Fair MD This is a two-dimensional echo with spectral Doppler, color-flow and M-mode. It was obtained in a patient with atrial fibrillation. Left atrium is dilated. Left ventricle end-diastolic dimension is normal. Left ventricle wall thickness is normal. LV systolic function is reduced with global hypokinesia with ejection fraction of about 35%. Right atrium is dilated. Right ventricle is normal. Aortic root dimension is normal. Mitral valve annulus is calcified. Mitral valve leaflets are normal with mild mitral regurgitation. Aortic valve shows fibrocalcific changes with no stenosis. Mild aortic insufficiency is present. Tricuspid valve shows moderate tricuspid regurgitation with mild pulmonary hypertension with estimated pulmonary artery systolic pressure of 39. Pulmonary valve shows no pulmonary insufficiency. There is no pericardial effusion. IMPRESSION 1. Global hypokinesia with ejection fraction of about 35%. 2. Biatrial dilation. 3. Mitral annulus calcification with mild mitral regurgitation. 4. Aortic sclerosis with mild aortic insufficiency. 5. Moderate tricuspid regurgitation with mild pulmonary hypertension with estimated pulmonary artery systolic pressure of 39. - Laboratory Labs: 07/28/17 03:51 07/30/17 04:30 Laboratory Tests 07/26/17 04:54 NT-Pro-B Natriuret Pep 5350 H - Microbiology Microbiology 07/23/17 22:47 Sputum, Expectorated Gram Stain - Final 07/23/17 22:47 Sputum, Expectorated Sputum Culture - Final Normal Respiratory [facility] - Radiology Radiology: Date of Exam: 07/29/17 Ordering Provider: Anna Fair MD Type of Exam(s): XR chest 2V Reason for Exam(s): pneumonia/CHF INDICATION: pneumonia/CHF PROCEDURE: CHEST 2-VIEWS UPRIGHT (PA & LAT) Encounter: Initial COMPARISON: July 26, 2017 FINDINGS: Chronic bilateral increased interstitial markings in the lower lung jenkins. Slight decrease in left lower lobe consolidation. No pneumothorax or effusion. Heart size and mediastinal contours are stable. Pulmonary vascularity is unchanged. Impression: Slightly improved left lower lobe pneumonia. = = = = = = = = = = = = = = = = = = = = = = = = = = = = = = = = = = = = = = = = = = = = = = = = = = = = = = = = = = = Date of Exam: 07/23/17 Ordering Provider: Janice Bansal APRN Type of Exam(s): XR chest 2V Reason for Exam(s): SOA, known pneumonia INDICATION: SOA, known pneumonia PROCEDURE: CHEST 2-VIEWS UPRIGHT (PA & LAT) Encounter: Initial COMPARISON: July 22, 2017 FINDINGS: Chest appears stable with interstitial prominence. No new or worsening airspace consolidation. No pleural effusion or pneumothorax. Heart size and mediastinal contours are stable. Pulmonary vascularity is unchanged. Impression: Stable appearance of the chest. History of Present Illness HPI: Patient is a 76 year old female who presented to ED due to concerns of hypoxia. Patient had been diagnosed with CAP by her PCP on 07/22. She was started on azithromycin and steroids, of which she took one dose. She continued to have increased cough and not feel well. Her daughter has a pulse ox so they took her oxygen level and reported it would not go higher than 86%. She presented to the ED and was admitted due to hypoxia and pneumonia. Patient denies any other symptoms than cough and not feeling well. She weighs herself approximately once a week and has not noted any weight gain. She uses a CPAP at night but does not use oxygen through the day. She has no history of lung disease. She reports she has not missed any doses of medication, she has not noted any increased swelling. She follows with Dr. Bridges and is scheduled to see him 09/11 for her regular 6 month visit. Objective Vital signs: Temperature 97.2 F 07/30/17 12:00 Pulse Rate 83 07/30/17 12:00 Respiratory Rate 18 07/30/17 12:00 Blood Pressure 110/63 07/30/17 12:00 Pulse Oximetry 97 07/30/17 12:00 Rhythm: Atrial Fibrillation with Normal Ventricular Rate Height/Weight/BMI: Height 1.5 m Weight 83.6 kg Body Mass Index 36.9 - Constitutional Present: no acute distress, well nourished, well developed - Routine HEENT Exam Head: Present: normocephalic, atraumatic - Routine Respiratory Exam Present: rales (b/l bases). Absent: wheezes - Routine Cardiovascular Exam Present: no murmur, irregularly irregular - Routine Abdominal Exam Present: soft, non distended, non tender - Routine Extremities Exam Present: edema (trace b/l), normal capillary refill - Routine Skin Exam Present: dry, warm - Routine Neurological Exam Present: alert, oriented X3 - Routine Lymphatic Exam Lymphatic: Absent: adenopathy - Routine Psychiatric Exam Present: normal affect, cooperative Hospital Course This is a general summary of the patient's hospital course. For more details refer to the complete medical record. Hospital course: 07/24/17 Mrs. Rosas was admitted overnight with increasing dyspnea and pneumonia with treatment initiated as an outpatient. Oxygen saturation in the 80s at home prompting ER evaluation and subsequent admission. Continue ceftriaxone/azithromycin Wean oxygen as tolerated to maintain sats >90 Breathing treatments, RT consult Continue CPAP with sleep Obtain sputum culture Continue home medications (hold parameters and reduced doses of some meds due to acute illness) Monitor on telemetry for atrial fibrillation; rate control poor-Dr. Bridges consulted. Diabetic diet, sliding scale insulin (on no basal at home), glucose monitoring 07/25/17 Continue antibiotics-day 3 ceftriaxone/azithromycin; my review of chest x-ray does not reveal infiltrate. Repeat chest x-ray in a.m., sputum culture pending. Persistent leukocytosis with fever overnight-blood cultures to be drawn if recurs. Continue supplemental oxygen as needed. Continue diuresis. Heart rate poorly controlled overnight with rates 110-150 by review of vital signs and telemetry strips. Diltiazem added to metoprolol by cardiology this morning and currently heart rate ranging upper 90s-110. Patient indicates digoxin recently discontinued. Renal function stable. 07/26/17 Continue antibiotics-day 4 ceftriaxone/azithromycin; my review of chest x-ray does not reveal infiltrate again today but there is increased heart failure. Cardiology increasing diuretics-converted to IV administration. White count normalizing, no recurrent fever. Slept poorly due to persistent cough and not using CPAP due to ongoing cough. Add Tussionex at night for symptom management Remains in atrial fibrillation (chronic) with improved rate control on metoprolol and diltiazem. 07/27/17 Continue antibiotics-day #5 ceftriaxone/azithromycin Continue supplemental oxygen as needed - down to 1 L (No previous home O2 use.) Remains in atrial fibrillation (chronic) with improved rate control on metoprolol and diltiazem. Echo results pending. Work with PT/OT. Hope to DC home tomorrow if stable. Per cardiology: Continue Potassium supplement and change to daily dosing - monitor lab closely Will give IV Bumex 2mg today and tomorrow and monitor response 07/28/17 Cardiology has converted from IV Bumex to po and started Entresto for new systolic heart failure. Ejection fraction 35%. Continue metoprolol and Cardizem. Repeat BMP in a.m. Continues to need 1-2 L of oxygen. Add Acapella. Try to wean oxygen as able. Continue DuoNeb. Kidney function improving Has completed antibiotic treatment for community-acquired pneumonia. 07/29/17 Respiratory status continues to improve; ambulatory oximetry on room air with saturations 94-97%-will not need O2 with activities. Overnight oximetry tonight to determine if supplemental oxygen will be needed with CPAP. Tolerating Entresto for systolic heart failure. Ejection fraction 35%. Continue metoprolol and Cardizem. On Bumex 2 mg twice a day-time of administration shifted so given earlier in the day. Medication changes reviewed with patient's card stripper (Dr. Nicole) and he is requested follow-up in one to 2 weeks following discharge for reassessment of electrolytes/creatinine. Anticipate discharge tomorrow. 07/30/17 Bumex decreased to 2mg qd. With initiation of Entresto she is not on K+ supplement. Needs f-u BMP outpatient. Her previous home dose of hydralazine is now 50mg instead of 100mg. She is now on metoprolol instead of Coreg. Dismiss today. F-u with Dr. Abdalla in 1 wk. F-u with Dr. Nicole in 1-2 wks. F-u with Dr. Bridges in 2 wks. Time spent with patient: discharge greater than 30 minutes Resuscitation Status: Full Code Discharge Plan - Discharge Disposition Discharge Date: 07/30/17 Disposition: 01 Discharged Home, Self-Care *Condition: Improved Reason For Visit (Visit label in EMR): pneumonia - Discharge Medications *Discharge Medications: New Metoprolol Succinate (XL) [Toprol Xl] 200 mg PO DAILY #30 tab SACUBITRIL/VALSARTAN 24/26mg [ENTRESTO 24/26mg] 1 tab PO BID #60 tab Bumetanide Tab [Bumex 1 mg Tab] 2 mg PO DAILY #30 tab Continue Simvastatin 20 mg PO HS #0 tab dilTIAZem HCl [Diltiazem HCl] 180 mg PO BID #0 Docusate Sodium [Colace] 200 mg PO HS APAP/Diphenhydramine 500/25 [Tylenol Pm] 1 tab PO HS Sertraline [Zoloft] 100 mg PO DAILY Allopurinol [Zyloprim] 100 mg PO BID Niacin [Niacin ER] 1 tab PO HS #90 Ferrous Sulfate 325 mg PO TID Calcitriol [Rocaltrol] 1 tab PO DAILY Buspirone [Buspar] 10 mg PO 0800,1200 Melatonin/Pyridoxine HCl (B6) [Melatonin 10 mg Tablet] 10 mg PO HS Changed Hydralazine HCl 50 mg PO TID #90 tab Insulin Aspart Prot/Insuln Asp [Novolog Mix 70-30 Flexpen Syrn] 3 unit SQ TIDWM #0 Discontinued Furosemide [Lasix 40 mg Tab] 80 mg PO AM Furosemide [Lasix 40 mg Tab] 40 mg PO NOON Melatonin 3 mg Tablet 3 mg PO HS Potassium Chloride 20 meq PO 0800,1200 #0 Carvedilol 25 mg PO BID #0 Potassium Chloride 10 meq PO 1700 #0 cap Rapidan 5 mg-acetaminophen 325 mg tablet 1 tab PO HS PRN tab PRN Reason: Pain - Discharge Packet/Instructions *Diet: diabetic diet *Activity: As tolerated *Pain Management/Treatment: n/a *Wound Care: n/a *Expected Signs/Symptoms: Continue improvement in strength *Notify Physician if: you develop fever or increasing cough or shortness of breath *During Business Hours Contact: Dr Abdalla's office *After Business Hours Contact: [facility] and have Dr. Abdalla paged *Pending Lab/Results: No Pending Lab - Referrals/Follow Up *Referrals/Follow Up: Fermin Bridges MD [Physician] - 2 Weeks Neville Nicole MD [Physician] - 2 Weeks Raj Abdalla DO [Primary Care Provider] - 1 Week - Patient Handouts Patient Handouts: Pneumonia (GEN) - Dismissal Complete Discharge Instructions are:: Complete Physician Narrative - Narrative Physician: Anna Fair MD Attestation Narrative: Date: 07/30/17 Time: 1620 I have independently evaluated and examined this patient. I reviewed the chart, the patient's history, and the SISAL OPERATOR/PA's documented findings as above. We discussed and formulated the assessment and plan as above with additions as below: Mrs. Rosas reports that she feels she is breathing comfortably today; minimal cough or sputum production remains. She was able to rest more effectively last night than she did the prior night after timing of Bumex was altered. Cardiology is decreased Bumex to once daily which will help further. NAD, alert, respirations nonlabored, faint crackles at the bases. Overnight oximetry reviewed-1 minute with oxygen saturation < 89% on room air using home CPAP. No need for home oxygen; stable for discharge at this time. Follow-up as described above.
== END 2017-07-30 14:25 | disposition home or self-care (01) | DRG 871 ==
LOC: ED 18:49 → MED 22:37 → SUATTDRO 22:37 → MED 23:15
PROVIDERS: ADMIT Internal Medicine; ATTEND Internal Medicine